=== PATIENT | male | born 1940 | race Two or more races ===

== ENCOUNTER → 2017-02-12 | Outpatient (CLI) | payer MEDICARE, MEDICAID ==
[~2017-02-12] MED LIST: CLOP75TA41 PO; DUTA0.5C11 PO; NITR100C PO; PRO125RS PO; PROAIR
== END | disposition home or self-care (01) ==
LOC: RT 08:53
PROVIDERS: ATTEND Internal Medicine Pulmonary Disease
DX: J44.9 Chronic obstructive pulmonary disease, unspecified (principal); R06.00 Dyspnea, unspecified
CPT/HCPCS: 94010; 94640

== ENCOUNTER → 2017-04-21 | Outpatient (CLI) | payer MEDICARE, MEDICAID ==
[2017-04-21 07:26] LABS: Urine RBC None Seen /hpf (0 - 3)
[2017-04-21 07:40] LABS: Basophils # (auto) 0.1 uL; Basophils % (auto) 1.1 % (0.0-2.0); Eosinophils # (auto) 0.3 uL; Eosinophils % (auto) 4.3 % (0.0-7.0); Hematocrit 44.2 % (41.0-53.0); Hemoglobin 14.6 g/dL (13.5-17.5); Lymphocytes # (auto) 1.4 uL; Lymphocytes % (auto) 23.5 % (10.0-50.0); Mean Corpuscular Hemoglobin 30.3 pg (28.0-32.0); Mean Corpuscular Hgb Conc. 33.1 g/dL (32.0-36.0); Mean Corpuscular Volume 91.5 fL (80.0-100.0); Mean Platelet Volume 7.4 fL (6.9-10.8); Monocytes # (auto) 0.8 uL; Monocytes % (auto) 13.4 % (0.0-12.0); Neutrophils # (auto) 3.4 uL; Neutrophils % (auto) 57.7 % (37.0-80.0); Nucleated Red Blood Cells % 0.1 %; Platelet Count (auto) 286 10^3/uL (140-450); Red Cell Distribution Width 13.3 % (11.8-14.3)
[2017-04-21 08:00] LABS: Urine Bilirubin Negative (Negative); Urine Blood Negative /uL (Negative); Urine Color Yellow (Yellow); Urine Glucose Normal (Normal); Urine Ketone Negative (Negative); Urine Mucus FEW (None Seen); Urine Nitrite Negative (Negative); Urine Squamous Epithelial Cell FEW /hpf (<5); Urine Urobilinogen Normal (Negative)
[2017-04-21 08:01] LABS: BUN/Creatinine Ratio 15.9; Bilirubin, Total 0.8 mg/dL (0.2-1.0); Calcium 9.2 mg/dL (8.5-10.1); Potassium 4.5 mmol/L (3.5-5.1); Total Protein 7.6 g/dL (6.4-8.2)
== END | disposition home or self-care (01) ==
LOC: LAB 06:39
PROVIDERS: ATTEND Family Medicine
DX: E78.4 Other hyperlipidemia (principal); J44.9 Chronic obstructive pulmonary disease, unspecified; I10 Essential (primary) hypertension; I63.9 Cerebral infarction, unspecified; E11.9 Type 2 diabetes mellitus without complications; Z79.899 Other long term (current) drug therapy
CPT/HCPCS: 36415; 80053; 80061; 81001; 82306; 83036; 84443; 85025

== ENCOUNTER → 2017-05-07 | Outpatient (CLI) | payer MEDICARE, MEDICAID ==
[2017-05-07 08:23] LABS: Amylase 92 U/L (25-115); Cholesterol 240 mg/dL (< 200); HDL Cholesterol 65 mg/dL (40-59); LDL Cholesterol 145 mg/dL (< 100); Triglycerides 266 mg/dL (< 150)
== END | disposition home or self-care (01) ==
LOC: LAB 06:45
PROVIDERS: ATTEND Nurse Practitioner
DX: E78.00 Pure hypercholesterolemia, unspecified (principal)
CPT/HCPCS: 36415; 80061; 82150; 83690

== ENCOUNTER → 2017-05-31 | Outpatient (CLI) | payer MEDICARE, MEDICAID | END | disposition home or self-care (01) | LOC: LAB 10:50 | PROVIDERS: ATTEND Internal Medicine Gastroenterology | DX: I10 Essential (primary) hypertension (principal); R10.84 Generalized abdominal pain | CPT/HCPCS: 36415; 82565; 84520 ==

== ENCOUNTER 2017-08-18 07:30 | Day surgery (SDC) | payer MEDICARE, MEDICAID ==
[2017-08-16 12:37] LABS: Urine Bacteria FEW /hpf (None Seen); Urine Blood Negative /uL (Negative); Urine Mucus FEW (None Seen); Urine WBC 1 /hpf (0 - 3)
[2017-08-16 12:43] LABS: Basophils # (auto) 0.1 uL; Basophils % (auto) 1.1 % (0.0-2.0); Eosinophils # (auto) 0.2 uL; Eosinophils % (auto) 3.1 % (0.0-7.0); Hematocrit 45.7 % (41.0-53.0); Hemoglobin 14.8 g/dL (13.5-17.5); Lymphocytes # (auto) 1.4 uL; Lymphocytes % (auto) 21.6 % (10.0-50.0); Mean Corpuscular Hemoglobin 29.7 pg (28.0-32.0); Mean Corpuscular Hgb Conc. 32.3 g/dL (32.0-36.0); Mean Corpuscular Volume 91.9 fL (80.0-100.0); Monocytes # (auto) 0.7 uL; Monocytes % (auto) 10.3 % (0.0-12.0); Neutrophils % (auto) 63.9 % (37.0-80.0); Platelet Count (auto) 285 10^3/uL (140-450); Red Blood Cells 4.97 10^6/uL (4.5-5.90); Red Cell Distribution Width 14.3 % (11.8-14.3); White Blood Cell 6.3 10^3/uL (4.4-10.8)
[2017-08-16 12:58] LABS: Calcium 9.6 mg/dL (8.5-10.1); Potassium 4.2 mmol/L (3.5-5.1)
[2017-08-16 13:00] LABS: Partial Thromboplastin Time 27.4 sec (22.64-33.71); Prothrombin Time 10.9 sec (9.37-12.3)
[2017-08-16 13:02] LABS: Albumin 4.2 g/dL (3.4-5.0); BUN/Creatinine Ratio 23.7
[2017-08-16 13:17] LABS: Bilirubin, Total 0.7 mg/dL (0.2-1.0); Total Protein 7.8 g/dL (6.4-8.2)
[~2017-08-18] VITALS: Ht 162.6 cm; Wt 68.0 kg
[~2017-08-18 07:30] MED LIST changes: +ALLO100T PO; +ASPI81TA27 PO; +ATOR20TA50 PO; +CHOL4POW4 PO; -CLOP75TA41 PO; -DUTA0.5C11 PO; +MELO1TAB56 PO; -NITR100C PO; -PRO125RS PO; -PROAIR; +PROAIR IN; +VALS1TAB57 PO
[2017-08-18] MEDS ORDERED: ceFAZolin 1GM/50ML 50 ML IV ONE (08:10)
[2017-08-18] MEDS ORDERED: SUCCINYLCHOLINE CHLORIDE 20 MG/ML 10ML VIAL IV ONE (09:22)
[2017-08-18] MEDS ORDERED: LIDOCAINE 1% HCL (LOCAL ANESTH.) INJ 20ML MDV ONE (09:22)
[2017-08-18] MEDS ORDERED: ROCURONIUM 10MG/ML 10ML VIAL IV ONE (09:23)
[2017-08-18] MEDS ORDERED: PROPOFOL 10 MG/ML 20 ML IV ONE (09:23)
[2017-08-18] MEDS ORDERED: MIDAZOLAM HCL 1MG/1ML-2 ML VIAL ONE (09:25)
[2017-08-18] MEDS ORDERED: NALOXONE HCL 0.4 MG/ML VIAL IV PRN (10:15)
[2017-08-18] MEDS ORDERED: hydrALAZINE HCL 20 MG/ML VL IV PRN (10:15)
[2017-08-18] MEDS ORDERED: MORPHINE SULFATE 4 MG/ML SYR/VIAL IV PRN (10:15)
[2017-08-18] MEDS ORDERED: ONDANSETRON HCL 4 MG/2 ML VIAL IV ONE (10:15)
[2017-08-18] MEDS ORDERED: fentaNYL CITRATE 100 MCG/2 ML VL ONE (10:18)
[2017-08-18] MEDS ORDERED: BUPIVACAINE W/ EPINEPH 0.25% INJ 50ML MDV ONE (10:19)
[2017-08-18] MEDS ORDERED: STERILE WATER 10 ML ONE (10:23)
[2017-08-18] MEDS ORDERED: ePHEDrine SULFATE 50 MG/ML AMP ONE (10:23)
[2017-08-18] MEDS ORDERED: GLYCOPYRROLATE 0.2 MG/ML 1ML VIAL ONE ×2 (10:34→10:35)
[2017-08-18] MEDS ORDERED: NEOSTIGMINE 1 MG/ML INJ (10mg/10ML VIAL) ONE (10:34)
[2017-08-18 11:56] VITALS: BP 148/84
== END 2017-08-18 11:59 | disposition home or self-care (01) ==
LOC: SUR 07:30
PROVIDERS: ATTEND Surgery
DX: K42.9 Umbilical hernia without obstruction or gangrene (principal); Z68.25 Body mass index [BMI] 25.0-25.9, adult; J45.909 Unspecified asthma, uncomplicated; M19.90 Unspecified osteoarthritis, unspecified site; Z87.891 Personal history of nicotine dependence; D69.6 Thrombocytopenia, unspecified
CPT/HCPCS: 36415; 80053; 81001; 85025; 85610; 85730; J0330; J0690; J2001; J2250; J2704

== ENCOUNTER → 2017-10-15 | Outpatient (CLI) | payer MEDICARE, MEDICAID ==
[2017-10-15 08:09] LABS: Urine WBC None Seen /hpf (0 - 3)
[2017-10-15 08:28] LABS: Basophils # (auto) 0 uL; Basophils % (auto) 0.9 % (0.0-2.0); Eosinophils # (auto) 0.1 uL; Eosinophils % (auto) 2.4 % (0.0-7.0); Hematocrit 42.6 % (41.0-53.0); Hemoglobin 14.1 g/dL (13.5-17.5); Lymphocytes # (auto) 1.2 uL; Lymphocytes % (auto) 21.5 % (10.0-50.0); Mean Corpuscular Hemoglobin 30.2 pg (28.0-32.0); Mean Corpuscular Volume 91.5 fL (80.0-100.0); Monocytes # (auto) 0.8 uL; Neutrophils # (auto) 3.5 uL; Neutrophils % (auto) 61.2 % (37.0-80.0); Platelet Count (auto) 254 10^3/uL (140-450); Red Blood Cells 4.66 10^6/uL (4.5-5.90); Red Cell Distribution Width 14.2 % (11.8-14.3); White Blood Cell 5.6 10^3/uL (4.4-10.8)
[2017-10-15 09:16] LABS: Urine Bacteria FEW /hpf (None Seen); Urine Blood Negative /uL (Negative); Urine Specific Gravity 1.013 (1.001-1.035)
[2017-10-15 09:39] LABS: BUN/Creatinine Ratio 18.3; Bilirubin, Total 0.3 mg/dL (0.2-1.0); Calcium 9.1 mg/dL (8.5-10.1); Potassium 4.3 mmol/L (3.5-5.1); Total Protein 7.7 g/dL (6.4-8.2)
== END | disposition home or self-care (01) ==
LOC: LAB 07:51
PROVIDERS: ATTEND Nurse Practitioner
DX: I10 Essential (primary) hypertension (principal); E78.5 Hyperlipidemia, unspecified; R68.89 Other general symptoms and signs; E11.9 Type 2 diabetes mellitus without complications; E78.00 Pure hypercholesterolemia, unspecified; Z87.891 Personal history of nicotine dependence; Z79.899 Other long term (current) drug therapy
CPT/HCPCS: 36415; 80053; 80061; 81001; 83036; 85025

== ENCOUNTER → 2018-05-09 | Outpatient (CLI) | payer MEDICARE, MEDICAID ==
[2018-05-09 10:22] LABS: Basophils % (manual) 0 (0.0-2.0); Blast Cells 0; Eosinophils % (manual) 0 (0-7); Metamyelocytes % 0; Myelocytes % 0; Promyelocytes % 0; Reactive Lymphocytes 0
[2018-05-09 10:28] LABS: Basophils # (auto) 0 uL; Basophils % (auto) 0.8 % (0.0-2.0); Eosinophils # (auto) 0.2 uL; Eosinophils % (auto) 2.9 % (0.0-7.0); Hematocrit 41.5 % (41.0-53.0); Hemoglobin 13.7 g/dL (13.5-17.5); Lymphocytes # (auto) 1.4 uL; Lymphocytes % (auto) 22.6 % (10.0-50.0); Mean Corpuscular Hemoglobin 30.6 pg (28.0-32.0); Mean Corpuscular Volume 92.5 fL (80.0-100.0); Monocytes # (auto) 0.7 uL; Monocytes % (auto) 11.1 % (0.0-12.0); Neutrophils # (auto) 3.8 uL; Neutrophils % (auto) 62.6 % (37.0-80.0); Platelet Count (auto) 315 10^3/uL (140-450); Red Blood Cells 4.48 10^6/uL (4.5-5.90); Red Cell Distribution Width 13.3 % (11.8-14.3); White Blood Cell 6.1 10^3/uL (4.4-10.8)
[2018-05-09 10:33] LABS: Urine Bacteria NONE SEEN /hpf (None Seen); Urine Blood Negative /uL (Negative); Urine Specific Gravity 1.015 (1.001-1.035); Urine WBC 1 /hpf (0 - 3)
[2018-05-09 10:49] LABS: BUN/Creatinine Ratio 18.2; Calcium 9.2 mg/dL (8.5-10.1); Potassium 5.1 mmol/L (3.5-5.1)
[2018-05-09 10:52] LABS: Bilirubin, Total 0.6 mg/dL (0.2-1.0); INR 0.93 (0.9-1.15); Partial Thromboplastin Time 24.7 sec (23.78-33.04); Total Protein 7.7 g/dL (6.4-8.2)
[2018-05-09 11:11] LABS: Band Neutrophils % (manual) 2; Lymphocytes % (manual) 20 (10.0-50.0); Monocytes % (manual) 9 (0-12)
== END | disposition home or self-care (01) ==
LOC: LAB 07:52
PROVIDERS: ATTEND Anesthesiology Pain Medicine
DX: R79.1 Abnormal coagulation profile (principal); Z79.01 Long term (current) use of anticoagulants
CPT/HCPCS: 36415; 80053; 81001; 85025; 85610; 85730

== ENCOUNTER → 2018-06-08 | Outpatient (CLI) | payer MEDICARE, MEDICAID ==
[2018-06-08 14:20] LABS: Basophils # (auto) 0 uL; Basophils % (auto) 0.6 % (0.0-2.0); Eosinophils # (auto) 0.1 uL; Eosinophils % (auto) 1.8 % (0.0-7.0); Hemoglobin 13.3 g/dL (13.5-17.5); Lymphocytes # (auto) 1.2 uL; Lymphocytes % (auto) 16.4 % (10.0-50.0); Mean Corpuscular Hgb Conc. 33.3 g/dL (32.0-36.0); Mean Corpuscular Volume 93.3 fL (80.0-100.0); Monocytes # (auto) 0.7 uL; Monocytes % (auto) 10.1 % (0.0-12.0); Neutrophils # (auto) 5.2 uL; Neutrophils % (auto) 71.1 % (37.0-80.0); Nucleated Red Blood Cells % 0.1 %; Platelet Count (auto) 308 10^3/uL (140-450); Red Blood Cells 4.29 10^6/uL (4.5-5.90); Red Cell Distribution Width 12.9 % (11.8-14.3); Urine Bacteria NONE SEEN /hpf (None Seen); Urine Blood Negative /uL (Negative); Urine Mucus FEW (None Seen); Urine Specific Gravity 1.019 (1.001-1.035); Urine WBC 2 /hpf (0 - 3); White Blood Cell 7.4 10^3/uL (4.4-10.8)
[2018-06-08 14:35] LABS: INR 0.96 (0.9-1.15); Partial Thromboplastin Time 24.5 sec (23.78-33.04); Prothrombin Time 10.3 sec (9.27-12.13)
[2018-06-08 14:53] LABS: BUN/Creatinine Ratio 16.8; Calcium 9.2 mg/dL (8.5-10.1); Potassium 4.5 mmol/L (3.5-5.1)
== END | disposition home or self-care (01) ==
LOC: LAB 13:16
PROVIDERS: ATTEND Anesthesiology Pain Medicine
DX: R79.1 Abnormal coagulation profile (principal); Z79.01 Long term (current) use of anticoagulants
CPT/HCPCS: 36415; 80048; 81001; 85025; 85610; 85730

== ENCOUNTER → 2018-07-28 | Outpatient (CLI) | payer MEDICARE, MEDICAID ==
[2018-07-28 08:08] LABS: Urine Bacteria NONE SEEN /hpf (None Seen); Urine Blood Negative /uL (Negative); Urine Specific Gravity 1.018 (1.001-1.035); Urine Sperm PRESENT /hpf (None Seen); Urine WBC 5 /hpf (0 - 3)
[2018-07-28 08:12] LABS: Basophils # (auto) 0.1 uL; Eosinophils # (auto) 0.2 uL; Eosinophils % (auto) 3.4 % (0.0-7.0); Hematocrit 41.7 % (41.0-53.0); Hemoglobin 13.9 g/dL (13.5-17.5); Lymphocytes # (auto) 1.3 uL; Lymphocytes % (auto) 21.4 % (10.0-50.0); Mean Corpuscular Hemoglobin 30.2 pg (28.0-32.0); Mean Corpuscular Hgb Conc. 33.3 g/dL (32.0-36.0); Mean Corpuscular Volume 90.7 fL (80.0-100.0); Monocytes # (auto) 0.8 uL; Monocytes % (auto) 12.1 % (0.0-12.0); Neutrophils # (auto) 3.8 uL; Neutrophils % (auto) 62.1 % (37.0-80.0); Platelet Count (auto) 323 10^3/uL (140-450); Red Cell Distribution Width 12.9 % (11.8-14.3); White Blood Cell 6.2 10^3/uL (4.4-10.8)
[2018-07-28 08:19] LABS: Alanine Aminotransferase 21 U/L (16-61); Albumin 3.8 g/dL (3.4-5.0); Anion Gap 5 (5-15); Aspartate Aminotransferase 16 U/L (15-37); BUN/Creatinine Ratio 21.1; Blood Urea Nitrogen 23 mg/dL (7-18); Calcium 9.2 mg/dL (8.5-10.1); Carbon Dioxide 29 mmol/L (21-32); Chloride 105 mmol/L (98-107); GFR African American > 60 mL/min; GFR Non-African American > 60 mL/min; Glucose 94 mg/dL (74-106); Potassium 4.2 mmol/L (3.5-5.1); Sodium 139 mmol/L (136-145); Uric Acid 6.4 mg/dL (3.5-7.2)
[2018-07-28 08:25] LABS: Alkaline Phosphatase 98 U/L (45-117); Bilirubin, Total 0.5 mg/dL (0.2-1.0); Cholesterol 187 mg/dL (< 200); HDL Cholesterol 68 mg/dL (40-59); LDL Cholesterol 110 mg/dL (< 100); Total Protein 7.3 g/dL (6.4-8.2); Triglycerides 107 mg/dL (< 150)
== END | disposition home or self-care (01) ==
LOC: LAB 07:19
PROVIDERS: ATTEND Nurse Practitioner
DX: E78.5 Hyperlipidemia, unspecified (principal); I10 Essential (primary) hypertension; E11.9 Type 2 diabetes mellitus without complications; J44.9 Chronic obstructive pulmonary disease, unspecified; M10.9 Gout, unspecified; Z87.891 Personal history of nicotine dependence; R35.1 Nocturia
CPT/HCPCS: 36415; 80053; 80061; 81001; 83036; 84153; 84443; 84550; 85025

== ENCOUNTER 2018-10-07 08:21 | Day surgery (SDC) | payer MEDICARE, MEDICAID ==
[2018-10-04 09:49] LABS: Basophils # (auto) 0 uL; Basophils % (auto) 0.7 % (0.0-2.0); Eosinophils # (auto) 0.1 uL; Hematocrit 40.2 % (41.0-53.0); Hemoglobin 13.2 g/dL (13.5-17.5); Lymphocytes % (auto) 16.4 % (10.0-50.0); Mean Corpuscular Hemoglobin 29.3 pg (28.0-32.0); Mean Corpuscular Hgb Conc. 32.9 g/dL (32.0-36.0); Mean Corpuscular Volume 89.1 fL (80.0-100.0); Monocytes # (auto) 0.7 uL; Monocytes % (auto) 12.5 % (0.0-12.0); Neutrophils # (auto) 4.1 uL; Neutrophils % (auto) 68.4 % (37.0-80.0); Platelet Count (auto) 309 10^3/uL (140-450); Red Blood Cells 4.51 10^6/uL (4.5-5.90)
[2018-10-04 10:01] LABS: INR 0.94 (0.9-1.15); Partial Thromboplastin Time 25.7 sec (23.78-33.04); Prothrombin Time 10.1 sec (9.27-12.13)
[~2018-10-07] VITALS: Ht 162.6 cm; Wt 68.0 kg
[~2018-10-07 08:21] MED LIST changes: -ALLO100T PO; -MELO1TAB56 PO
[2018-10-07] MEDS ORDERED: LIDOCAINE VISCOUS 2% 15ML UD ONE (08:37)
[2018-10-07] MEDS ORDERED: SODIUM CHLORIDE LOCK 10 ML ONE (08:37)
[2018-10-07] MEDS ORDERED: diphenhdrAMINE HCL 50 MG/1 ML VL ONE (08:38)
[2018-10-07] MEDS: fentaNYL CITRATE 100 MCG/2 ML VL ONE ×3 (10:30→10:41)
[2018-10-07] MEDS: MIDAZOLAM HCL 5 MG/ML-1ML VIAL ONE ×3 (10:30→10:41)
[2018-10-07 11:25] VITALS: BP 116/72
== END 2018-10-07 11:25 | disposition home or self-care (01) ==
LOC: GI 08:21
PROVIDERS: ATTEND Internal Medicine Gastroenterology
DX: Z12.11 Encounter for screening for malignant neoplasm of colon (principal); D12.3 Benign neoplasm of transverse colon; K57.30 Diverticulosis of large intestine without perforation or abscess without bleeding; K64.8 Other hemorrhoids; H40.89 Other specified glaucoma; J45.909 Unspecified asthma, uncomplicated; Z88.6 Allergy status to analgesic agent; Z88.8 Allergy status to other drugs, medicaments and biological substances; Z98.890 Other specified postprocedural states
CPT/HCPCS: 36415; 43450; 45380; 85025; 85610; 85730; 88305; A6257; J1200; J2250; J3010; 99152

== ENCOUNTER → 2019-01-27 | Outpatient (CLI) | payer MEDICARE, MEDICAID ==
[~2019-01-27] MED LIST changes: +ASPI-404 PO; -ASPI81TA27 PO
[2019-01-27 09:24] LABS: Basophils # (auto) 0 uL; Basophils % (auto) 0.7 % (0.0-2.0); Eosinophils # (auto) 0.2 uL; Hematocrit 40.8 % (41.0-53.0); Hemoglobin 13.5 g/dL (13.5-17.5); Lymphocytes # (auto) 1.4 uL; Lymphocytes % (auto) 22.5 % (10.0-50.0); Mean Corpuscular Hemoglobin 28.7 pg (28.0-32.0); Mean Corpuscular Hgb Conc. 33.1 g/dL (32.0-36.0); Mean Corpuscular Volume 86.6 fL (80.0-100.0); Monocytes # (auto) 0.7 uL; Monocytes % (auto) 11.1 % (0.0-12.0); Neutrophils # (auto) 3.8 uL; Neutrophils % (auto) 62.7 % (37.0-80.0); Platelet Count (auto) 293 10^3/uL (140-450); Red Blood Cells 4.71 10^6/uL (4.5-5.90); Red Cell Distribution Width 15.4 % (11.8-14.3); White Blood Cell 6.1 10^3/uL (4.4-10.8)
[2019-01-27 09:37] LABS: Albumin 3.8 g/dL (3.4-5.0); BUN/Creatinine Ratio 18.2; Calcium 9.3 mg/dL (8.5-10.1); Potassium 4.3 mmol/L (3.5-5.1)
[2019-01-27 09:42] LABS: Bilirubin, Total 0.5 mg/dL (0.2-1.0); Total Protein 7.4 g/dL (6.4-8.2)
[2019-01-27 09:52] LABS: Urine Bacteria NONE SEEN /hpf (None Seen); Urine Blood Negative /uL (Negative); Urine Specific Gravity 1.018 (1.001-1.035); Urine WBC 1 /hpf (0 - 3)
== END | disposition home or self-care (01) ==
LOC: LAB 08:55
PROVIDERS: ATTEND Nurse Practitioner
DX: E78.5 Hyperlipidemia, unspecified (principal)
CPT/HCPCS: 36415; 80053; 80061; 81001; 84443; 85025

== ENCOUNTER → 2019-08-14 | Outpatient (CLI) | payer MEDICARE ==
[2019-08-14 08:24] LABS: Basophils # (auto) 0.1 uL; Basophils % (auto) 0.9 % (0.0-2.0); Eosinophils # (auto) 0.4 uL; Hematocrit 34.6 % (41.0-53.0); Hemoglobin 11.2 g/dL (13.5-17.5); Lymphocytes # (auto) 1.3 uL; Lymphocytes % (auto) 17.8 % (10.0-50.0); Mean Corpuscular Hemoglobin 26.8 pg (28.0-32.0); Mean Corpuscular Hgb Conc. 32.3 g/dL (32.0-36.0); Monocytes # (auto) 0.8 uL; Monocytes % (auto) 10.7 % (0.0-12.0); Neutrophils # (auto) 4.8 uL; Neutrophils % (auto) 65.6 % (37.0-80.0); Nucleated Red Blood Cells % 0.1 %; Platelet Count (auto) 344 10^3/uL (140-450); Red Blood Cells 4.16 10^6/uL (4.5-5.90); Red Cell Distribution Width 15.2 % (11.8-14.3); White Blood Cell 7.3 10^3/uL (4.4-10.8)
[2019-08-14 08:33] LABS: Urine Bacteria NONE SEEN /hpf (None Seen); Urine Blood Negative /uL (Negative); Urine Specific Gravity 1.011 (1.001-1.035); Urine Sperm PRESENT /hpf (None Seen); Urine WBC <1 /hpf (0 - 3)
[2019-08-14 08:47] LABS: Potassium 4.3 mmol/L (3.5-5.1)
[2019-08-14 08:56] LABS: Albumin 3.8 g/dL (3.4-5.0); BUN/Creatinine Ratio 17.1; Bilirubin, Total 0.3 mg/dL (0.2-1.0); Calcium 9.2 mg/dL (8.5-10.1); Total Protein 7.5 g/dL (6.4-8.2)
== END | disposition home or self-care (01) ==
LOC: LAB 07:32
PROVIDERS: ATTEND Nurse Practitioner
DX: E78.5 Hyperlipidemia, unspecified (principal)
CPT/HCPCS: 36415; 80053; 80061; 81001; 82270; 84443; 85025

== ENCOUNTER → 2020-02-05 | Outpatient (CLI) | payer MEDICARE ==
[~2020-02-05] MED LIST changes: -ASPI-404 PO; +ASPI-543 PO
[2020-02-05 07:40] LABS: Basophils # (auto) 0.1 10 ^3/uL (0-0.2); Hemoglobin 9.4 g/dL (13.5-17.5); Lymphocytes # (auto) 1.7 10 ^3/uL (0.4-5.4)
[2020-02-05 07:41] LABS: Basophils % (auto) 1.2 % (0.0-2.0); Eosinophils # (auto) 0.3 10 ^3/uL (0-0.8); Eosinophils % (auto) 3.9 % (0.0-7.0); Hematocrit 30.9 % (41.0-53.0); Lymphocytes % (auto) 24.4 % (10.0-50.0); Mean Corpuscular Hgb Conc. 30.4 g/dL (32.0-36.0); Mean Corpuscular Volume 75.6 fL (80.0-100.0); Monocytes % (auto) 14.3 % (0.0-12.0); Neutrophils # (auto) 3.9 10 ^3/uL (1.6-8.6); Neutrophils % (auto) 56.2 % (37.0-80.0); Nucleated Red Blood Cells % 0.1 %; Platelet Count (auto) 426 10^3/uL (140-450); Red Blood Cells 4.09 10^6/uL (4.5-5.90); Red Cell Distribution Width 16.6 % (11.8-14.3); White Blood Cell 6.9 10^3/uL (4.4-10.8)
[2020-02-05 08:20] LABS: % Iron Saturation 3.3 % (20-55)
[2020-02-05 08:39] LABS: Albumin 3.7 g/dL (3.4-5.0); BUN/Creatinine Ratio 21.4; Calcium 9.6 mg/dL (8.5-10.1); Potassium 4.3 mmol/L (3.5-5.1)
[2020-02-05 08:43] LABS: Bilirubin, Total 0.2 mg/dL (0.2-1.0); Total Protein 7.3 g/dL (6.4-8.2)
== END | disposition home or self-care (01) ==
LOC: LAB 07:21
PROVIDERS: ATTEND Nurse Practitioner
DX: D64.9 Anemia, unspecified (principal)
CPT/HCPCS: 36415; 80053; 83540; 83550; 85025

== ENCOUNTER → 2020-02-12 | Outpatient (CLI) | payer MEDICARE | END | disposition home or self-care (01) | LOC: LAB 14:07 | PROVIDERS: ATTEND Nurse Practitioner | DX: D64.9 Anemia, unspecified (principal) | CPT/HCPCS: 82270 ==

== ENCOUNTER → 2020-04-10 | Day surgery (SDC) | payer MEDICARE, MEDICAID ==
[2020-04-04 10:41] LABS: Basophils # (auto) 0 10 ^3/uL (0-0.2); Basophils % (auto) 0.1 % (0.0-2.0); Eosinophils # (auto) 0 10 ^3/uL (0-0.8); Hemoglobin 11.7 g/dL (13.5-17.5); Monocytes # (auto) 1.4 10 ^3/uL (0-1.3)
[2020-04-04 10:44] LABS: Hematocrit 36.9 % (41.0-53.0); Lymphocytes % (auto) 6.9 % (10.0-50.0); Mean Corpuscular Hemoglobin 24.8 pg (28.0-32.0); Mean Corpuscular Hgb Conc. 31.6 g/dL (32.0-36.0); Mean Corpuscular Volume 78.3 fL (80.0-100.0); Monocytes % (auto) 10.2 % (0.0-12.0); Neutrophils # (auto) 11.4 10 ^3/uL (1.6-8.6); Neutrophils % (auto) 82.8 % (37.0-80.0); Nucleated Red Blood Cells % 0.1 %; Platelet Count (auto) 353 10^3/uL (140-450); Red Blood Cells 4.71 10^6/uL (4.5-5.90); White Blood Cell 13.8 10^3/uL (4.4-10.8)
[2020-04-04 10:49] LABS: Red Cell Distribution Width 24.8 % (11.8-14.3)
[2020-04-04 10:53] LABS: INR 1.01 (0.9-1.15); Partial Thromboplastin Time 23.6 sec (23.0-31.2)
[~2020-04-10] VITALS: Ht 162.6 cm; Wt 68.0 kg
[~2020-04-10] MED LIST changes: +LIDOCAINE VISCOUS 2% 15ML UD ONE; +SODIUM CHLORIDE LOCK 10 ML ONE; +diphenhdrAMINE HCL 50 MG/1 ML VL ONE
[2020-04-10] MEDS: MIDAZOLAM HCL 5 MG/ML-1ML VIAL ONE ×3 (14:08→14:14)
[2020-04-10] MEDS: fentaNYL CITRATE 100 MCG/2 ML VL ONE ×3 (14:08→14:14)
[2020-04-10 15:00] VITALS: BP 125/68
== END | disposition home or self-care (01) ==
LOC: GI 13:12
PROVIDERS: ATTEND Internal Medicine Gastroenterology
DX: R13.10 Dysphagia, unspecified (principal); K29.50 Unspecified chronic gastritis without bleeding; K44.9 Diaphragmatic hernia without obstruction or gangrene; J45.909 Unspecified asthma, uncomplicated; H40.9 Unspecified glaucoma; I10 Essential (primary) hypertension; E78.00 Pure hypercholesterolemia, unspecified; Z20.828 Contact with and (suspected) exposure to other viral communicable diseases; Z98.890 Other specified postprocedural states
CPT/HCPCS: 36415; 43239; 85025; 85610; 85730; 88305; 88342; J2250; J3010; J7030; U0003; G0500

== ENCOUNTER → 2020-10-28 | Outpatient (CLI) | payer MEDICARE, MEDICAID ==
[~2020-10-28] MED LIST changes: -LIDOCAINE VISCOUS 2% 15ML UD ONE; -SODIUM CHLORIDE LOCK 10 ML ONE; -diphenhdrAMINE HCL 50 MG/1 ML VL ONE
[2020-10-28 08:23] LABS: Urine WBC None Seen /hpf (0 - 3)
[2020-10-28 08:27] LABS: Basophils # (auto) 0.1 10 ^3/uL (0-0.2); Basophils % (auto) 1.3 % (0.0-2.0); Eosinophils # (auto) 0.2 10 ^3/uL (0-0.8); Eosinophils % (auto) 3.4 % (0.0-7.0); Hematocrit 39.8 % (41.0-53.0); Hemoglobin 13.2 g/dL (13.5-17.5); Lymphocytes # (auto) 1.1 10 ^3/uL (0.4-5.4); Lymphocytes % (auto) 20.8 % (10.0-50.0); Mean Corpuscular Hemoglobin 30.8 pg (28.0-32.0); Mean Corpuscular Hgb Conc. 33.3 g/dL (32.0-36.0); Mean Corpuscular Volume 92.4 fL (80.0-100.0); Monocytes # (auto) 0.7 10 ^3/uL (0-1.3); Monocytes % (auto) 12.7 % (0.0-12.0); Neutrophils # (auto) 3.2 10 ^3/uL (1.6-8.6); Neutrophils % (auto) 61.8 % (37.0-80.0); Platelet Count (auto) 284 10^3/uL (140-450); Red Blood Cells 4.31 10^6/uL (4.5-5.90); Red Cell Distribution Width 13.2 % (11.8-14.3); White Blood Cell 5.2 10^3/uL (4.4-10.8)
[2020-10-28 08:30] LABS: Urine Bacteria NONE SEEN /hpf (None Seen); Urine Blood Negative /uL (Negative); Urine Specific Gravity 1.013 (1.001-1.035); Urine Sperm PRESENT /hpf (None Seen)
[2020-10-28 08:50] LABS: Albumin 3.8 g/dL (3.4-5.0); Potassium 4.6 mmol/L (3.5-5.1)
[2020-10-28 09:03] LABS: BUN/Creatinine Ratio 25.8; Bilirubin, Total 0.5 mg/dL (0.2-1.0); Calcium 9.4 mg/dL (8.5-10.1); Total Protein 7.3 g/dL (6.4-8.2)
== END | disposition home or self-care (01) ==
LOC: LAB 07:50
PROVIDERS: ATTEND Nurse Practitioner
DX: I10 Essential (primary) hypertension (principal); E78.5 Hyperlipidemia, unspecified
CPT/HCPCS: 36415; 80053; 80061; 81001; 85025

== ENCOUNTER → 2020-11-26 | Outpatient (CLI) | payer MEDICARE, MEDICAID | END | disposition home or self-care (01) | LOC: XY 09:09 | PROVIDERS: ATTEND Nurse Practitioner | DX: I65.23 Occlusion and stenosis of bilateral carotid arteries (principal); I70.8 Atherosclerosis of other arteries; R42 Dizziness and giddiness | CPT/HCPCS: 93886 ==

== ENCOUNTER → 2021-05-14 | Outpatient (CLI) | payer MEDICARE, MEDICAID ==
[2021-05-14 08:04] LABS: Basophils # (auto) 0.1 10 ^3/uL (0-0.2); Basophils % (auto) 1.1 % (0.0-2.0); Eosinophils # (auto) 0.4 10 ^3/uL (0-0.8); Eosinophils % (auto) 6.9 % (0.0-7.0); Hematocrit 39.6 % (41.0-53.0); Hemoglobin 12.9 g/dL (13.5-17.5); Lymphocytes # (auto) 1.5 10 ^3/uL (0.4-5.4); Lymphocytes % (auto) 25.6 % (10.0-50.0); Mean Corpuscular Hemoglobin 29.8 pg (28.0-32.0); Mean Corpuscular Hgb Conc. 32.5 g/dL (32.0-36.0); Mean Corpuscular Volume 91.5 fL (80.0-100.0); Monocytes % (auto) 16.9 % (0.0-12.0); Neutrophils # (auto) 2.9 10 ^3/uL (1.6-8.6); Neutrophils % (auto) 49.5 % (37.0-80.0); Red Blood Cells 4.33 10^6/uL (4.5-5.90); Red Cell Distribution Width 13.4 % (11.8-14.3); White Blood Cell 5.9 10^3/uL (4.4-10.8)
[2021-05-14 08:37] LABS: Albumin 3.5 g/dL (3.4-5.0); Calcium 8.9 mg/dL (8.5-10.1); Uric Acid 6.2 mg/dL (3.5-7.2)
[2021-05-14 08:42] LABS: Bilirubin, Total 0.4 mg/dL (0.2-1.0); Total Protein 6.9 g/dL (6.4-8.2)
== END | disposition home or self-care (01) ==
LOC: LAB 07:27
PROVIDERS: ATTEND Nurse Practitioner
DX: E78.5 Hyperlipidemia, unspecified (principal); M10.9 Gout, unspecified; D64.9 Anemia, unspecified
CPT/HCPCS: 36415; 80053; 80061; 84550; 85025

== ENCOUNTER → 2021-09-05 | Outpatient (CLI) | payer MEDICARE, MEDICAID ==
[2021-09-05 08:48] LABS: Urine Blood Negative /uL (Negative); Urine Specific Gravity 1.013 (1.001-1.035); Urine WBC 64 /hpf (0 - 3)
[2021-09-05 08:59] LABS: Urine Bacteria FEW /hpf (None Seen)
[2021-09-05 10:55] LABS: Potassium 4.3 mmol/L (3.5-5.1)
[2021-09-05 10:57] LABS: Basophils # (auto) 0.1 10 ^3/uL (0-0.2); Basophils % (auto) 0.8 % (0.0-2.0); Eosinophils # (auto) 0.3 10 ^3/uL (0-0.8); Eosinophils % (auto) 3.4 % (0.0-7.0); Hematocrit 39.5 % (41.0-53.0); Hemoglobin 12.9 g/dL (13.5-17.5); Lymphocytes # (auto) 1.5 10 ^3/uL (0.4-5.4); Mean Corpuscular Hemoglobin 29.6 pg (28.0-32.0); Mean Corpuscular Hgb Conc. 32.7 g/dL (32.0-36.0); Mean Corpuscular Volume 90.7 fL (80.0-100.0); Monocytes # (auto) 0.9 10 ^3/uL (0-1.3); Monocytes % (auto) 12.1 % (0.0-12.0); Neutrophils # (auto) 4.7 10 ^3/uL (1.6-8.6); Neutrophils % (auto) 63.7 % (37.0-80.0); Red Blood Cells 4.35 10^6/uL (4.5-5.90); Red Cell Distribution Width 13.7 % (11.8-14.3); White Blood Cell 7.4 10^3/uL (4.4-10.8)
[2021-09-05 11:07] LABS: Albumin 3.9 g/dL (3.4-5.0); Bilirubin, Total 0.4 mg/dL (0.2-1.0); Calcium 9.4 mg/dL (8.5-10.1); Total Protein 7.3 g/dL (6.4-8.2)
== END | disposition home or self-care (01) ==
LOC: LAB 07:47
PROVIDERS: ATTEND Nurse Practitioner
DX: E78.5 Hyperlipidemia, unspecified (principal); I10 Essential (primary) hypertension
CPT/HCPCS: 36415; 80053; 80061; 81001; 85025

== ENCOUNTER 2025-03-13 16:47 | Inpatient (IN) | payer MEDICARE, MEDICAID ==
[~2025-03-13] VITALS: Ht 162.6 cm; Wt 61.5 kg
[~2025-03-13 16:47] MED LIST changes: +CHOL4POW33 PO; -CHOL4POW4 PO
[2025-03-13] MEDS: PANTOPRAZOLE 40 MG TAB PO ONE (18:45)
[2025-03-13] MEDS: ONDANSETRON HCL 4 MG/2 ML VIAL IV ONE (18:45)
[2025-03-13] MEDS: MORPHINE SULFATE 4 MG/ML SYR/VIAL IV ONE (18:45)
[2025-03-13] MEDS: SODIUM CHLORIDE 0.9% 2,000 ML IV ONE (18:45)
--- NOTE | 2025-03-13 18:50 | ED.PDOC ---
GI ASSESSMENT HPI Comments 84-year-old male with a history of glaucoma, hypertension and Parkinson's brought in by daughter for evaluation of diffuse abdominal pain radiating to both flanks and constipation since yesterday, nausea, vomiting and inability to tolerate p.o. food or liquids today, associated with abdominal distention. Patient states he did have a very small bowel movement this afternoon, but still feels as though he needs to empty his bowels but can not. He denies any fever or dysuria. Chief Complaint: Abdominal Pain Time Seen by MD: 18:30 Primary Care Provider: BEV Reviewed Notes: Nurses Notes, Medications, Allergies Allergies: Coded Allergies: NO KNOWN ALLERGIES (Unverified , 10/04/18) Home Meds Reported Medications Aspirin (Aspir-Low) 81 Mg Tab, 81 MG PO DAILY for 30 Days, MG 08/16/17 Cholestyramine (Cholestyramine) 4 Gm Pow, 4 GM PO DAILY, POW 08/16/17 Valsartan (Valsartan) 80 Mg Tab, 80 MG PO DAILY, TAB 08/16/17 Atorvastatin Calcium (ATORVASTATIN CALCIUM) 20 Mg Tab, 1 TAB PO DAILY, #30 TAB 5 Refills 08/16/17 [Proair] No Conflict Check, 2 PUFF IN PRN 07/01/12 Information Source: Patient, Relative (Child) Mode of Arrival: Wheelchair Timing: Days Duration: Since onset Prehospital treatment: None Quality: Burning Vomitus: Watery Stool: Normal Severity: Moderate Recent: None Pain Location: Diffuse Modifying Factors: Food Associated sign and symptoms: Nausea, Vomiting, Constipation, Abdominal Pain Past Medical History PAST MEDICAL HISTORY: Asthma, COPD, CVA, Gout, High Lipids, HTN Past Medical History (Other): Parkinson's Family History Family History: Unknown Social History Smoker: Non-Smoker, Quit Greater Than 1 Year Alcohol: Denies ETOH Use Drugs: Denies Drug Use Lives In: Home Constitutional: denies: chills, diaphoresis, fatigue, fever, malaise, sweats, weakness, others EENTM: denies: blurred vision, double vision, ear bleeding, ear discharge, ear drainage, ear pain, ear ringing, eye pain, eye redness, hearing loss, mouth pain, mouth swelling, nasal discharge, nose bleeding, nose congestion, nose pain, photophobia, tearing, throat pain, throat swelling, voice changes, others Respiratory: denies: cough, hemoptysis, orthopnea, SOB at rest, shortness of breath, SOB with excertion, stridor, wheezing, others Cardiovascular: denies: chest pain, dizzy spells, diaphoresis, Dyspnea on exertion, edema, irregular heart beat, left arm pain, lightheadedness, palpitations, PND, syncope, others Gastrointestinal: reports: abdomen distended, abdominal pain, nausea, vomiting; denies: blood streaked bowels, constipated, diarrhea, dysphagia, difficulty swallowing, hematemesis, melena, poor appetite, poor fluid intake, rectal bleed ing, rectal pain, others Genitourinary: reports: dysuria; denies: burning, flank pain, frequency, hematuria, incontinence, penile discharge, penile sore, pain, testicle pain, testicle swelling, urgency, others Neurological: denies: dizziness, fainting, headache, left sided numbness, left sided weakness, numbness, paresthesia, pre-existing deficit, right sided numbness, right sided weakness, seizure, speech problems, tingling, tremors, weakness, others Musculoskeletal: denies: back pain, gout, joint pain, joint swelling, muscle pain, muscle stiffness, neck pain, others Integumetry: denies: bruises, change in color, change in hair/nails, dryness, laceration, lesions, lumps, rash, wounds, others Allergic/Immunocompromised: denies: Difficulty Healing, Frequent Infections, Hives, Itching, others Hematologic/Lymphatic: denies: anemia, blood clots, easy bleeding, easy bruising, swollen glands, others Endocrine: denies: excessive hunger, excessive sweating, excessive thirst, excessive urination, flushing, intolerance to cold, intolerance to heat, unexplained weight gain, unexplained weight loss, others Psychiatric: denies: anxiety, bipolar disorder, depression, hopeless, panic disorder, schizophrenia, sleepless, suicidal, others All Other Systems: Reviewed and Negative Physical Exam General Appearance: Mild Distress HEENT: Other (Vitals and face symmetric. Moist mucous membranes.) Neck: Full Range of Motion, Normal Inspection Respiratory: Decreased Breath Sounds, No Accessory Muscle Use, No Respiratory Distress Cardiovascular: No Edema, No JVD, Regular Rate/Rhythm Breast Exam: Deferred Gastrointestinal: Diffuse, Distended, Tenderness Genitalia: Deferred Pelvic: Deferred Rectal: Deferred Extremities: Normal inspection, Normal range of motion, Non-tender, No pedal edema Neurologic: Alert (Oriented x4), Normal Affect, Normal Mood, Other Cerebellar Function: NOT DONE Reflexes: NOT DONE Skin: Dry, Normal Color, Warm Lymphatic: NOT DONE Was a procedure done? Was a procedure done?: No GI differential Dx Differential Diagnosis: Bowel Obstruction, Constipation, Diverticular disease, Gastritis/PUD, Gastroenteritis, Inflammatory BD, Ischemic Bowel, Electrolyte Imbalance, Food Poisoning, Bacterial, Viral, Hypovolemia, Impaction X-Ray, Labs, Meds, VS Vital Signs Date Time Temp Pulse Resp B/P (MAP) Pulse Ox O2 Delivery O2 Flow Rate FiO2 03/13/25 16:48 98.8 100 18 110/57 97 98.8 Lab Test 03/13/25 18:58 03/13/25 18:55 Range/Units White Blood Count 11.1 H 4.4-10.8 10^3/uL Red Blood Count 4.90 4.5-5.90 10^6/uL Hemoglobin 14.3 13.5-17.5 g/dL Hematocrit 43.0 41.0-53.0 % Mean Corpuscular Volume 87.8 80.0-100.0 fL Mean Corpuscular Hemoglobin 29.1 28.0-32.0 pg Mean Corpuscular Hemoglobin Concent 33.1 32.0-36.0 g/dL Red Cell Distribution Width 14.1 11.8-14.3 % Platelet Count 438 140-450 10^3/uL Mean Platelet Volume 7.7 6.9-10.8 fL Neutrophils (%) (Auto) 86.0 H 37.0-80.0 % Lymphocytes (%) (Auto) 6.0 L 10.0-50.0 % Monocytes (%) (Auto) 7.4 0.0-12.0 % Eosinophils (%) (Auto) 0.4 0.0-7.0 % Basophils (%) (Auto) 0.2 0.0-2.0 % Neutrophils # (Auto) 9.5 H 1.6-8.6 10 ^3/uL Lymphocytes # (Auto) 0.7 0.4-5.4 10 ^3/uL Monocytes # (Auto) 0.8 0-1.3 10 ^3/uL Eosinophils # (Auto) 0 0-0.8 10 ^3/uL Basophils # (Auto) 0 0-0.2 10 ^3/uL Nucleated Red Blood Cells 0.0 % Sodium Level Pending Potassium Level Pending Chloride Level Pending Carbon Dioxide Level Pending Anion Gap Pending Blood Urea Nitrogen Pending Creatinine Pending Glomerular Filtration Rate Calc Pending BUN/Creatinine Ratio Pending Serum Glucose Pending Calcium Level Pending Total Bilirubin Pending Aspartate Amino Transferase (AST) Pending Alanine Aminotransferase (ALT) Pending Alkaline Phosphatase Pending Troponin I High Sensitivity Pending Total Protein Pending Albumin Pending Lipase Pending Lactic Acid Level Pending PROCEDURE(s): ABPL - CT AB PEL WO CON-NO ORAL OR IV REASON: diffuse abd pain, n/v, constip ORDER NUMBER(s): [id number], ACCESSION NUMBER(s): [id number] EXAM: CT CT AB PEL WO CON-NO ORAL OR IV INDICATION: diffuse abd pain, n/v, constip TECHNIQUE: Volumetric multidetector CT images of the abdomen and pelvis were obtained without contrast. All CT scans at this facility use dose modulation, iterative reconstruction, and/or weight based dosing when appropriate to reduce radiation dose to as low as reasonably achievable. COMPARISON: None FINDINGS: [LOWER CHEST]: The partially visualized lung bases are clear without a pleural effusion. The cardiac size is normal without pericardial effusion. [LIVER]: Normal hepatic size without suspicious focal lesion. [GALLBLADDER AND BILIARY TREE]: No cholelithiasis. [SPLEEN]: Unremarkable. [PANCREAS]: Unremarkable. [ADRENAL GLANDS]: Unremarkable [KIDNEYS]: No hydronephrosis. No nephroureterolithiasis. [BLADDER]: Circumferential bladder wall thickening, which may be seen in the s etting of acute versus chronic cystitis and correlate with urinalysis. [REPRODUCTIVE ORGANS]: Unremarkable. [BOWEL/MESENTERY]: Stomach is normal. Air-fluid distention of multiple small bowel loops measuring up to 3.1 cm. No discrete transition point. Correlate for ileus versus partial small bowel obstruction. Moderate to severe colonic diverticulosis. [ASCITES]: Absent [LYMPHADENOPATHY]: No pathologically enlarged lymph nodes by CT size criteria [VASCULATURE]: No aneurysmal dilatation. [ABDOMINAL WALL]: Unremarkable. [MUSCULOSKELETAL]: No acute fracture or aggressive focal osseous lesion. Multifocal degenerative change of the visualized spine. IMPRESSION: 1. Air-fluid distention of multiple small bowel loops measuring up to 3.1 cm. No discrete transition point. Correlate for ileus versus partial small bowel obstruction. 2. Moderate to severe colonic diverticulosis. X-Ray, Labs, Meds, VS Comment 84-year-old male with a history of hypertension, glaucoma, Parkinson's, COPD gout complaining of abdominal pain, distention, nausea, vomiting, inability to tolerate p.o. food or liquids, and constipation Vitals remarkable for BP 110/57 Exam remarkable for diffuse abdominal distention and tenderness Rhythm strip independently interpreted by me: Sinus rhythm, rate 100, no ectopy. CT abdomen and pelvis showed multiple air and fluid-filled distended small bowel loops concerning for ileus versus partial SBO Patient treated with the following in the ED: L 0.9 normal saline IV bolus, morphine 4 mg IV, Zofran 4 mg IV, Protonix 40 mg IV Orders were placed for NG tube insertion to low intermittent suction. Routine surgical consult was placed. On re-evaluation, pain has improved and vitals were stable. Plan is to admit the patient for bowel decompression and surgical evaluation Time of 1ST Reevaluation: 19:00 Reevaluation 1ST: Unchanged Patient Education/Counseling: Diagnosis, Treatment Family Education/Counseling: Diagnosis, Treatment SEPSIS Sepsis Screen Date sepsis recognized/suspect: Mar 13, 2025 Time Sepsis recognized/suspect: 1647 Recent Procedure: No On Antibiotic Therapy: No Respiratory Rate >20: No Heart Rate >90: Yes Temp<36 C (96.8 F) or >38.3 C: No SBP <90 or MAP <65 mmHG: No New Acute Mental Status Change: No Is the patient on CPAP, BIPAP,: No SEPSIS EXCLUSION NOTE: Sepsis Exclusion Note: Patient presents with SIRS criteria, but the SIRS response is attributed to [ pain, hypovolemia], not a suspected infection. Sepsis bundle is not initiated at this time, due to this reason. Further management will focus on the treatment of the above condition (s). Physician Orders Troponin-I Hs (03/14/25 00:00) Troponin-I Hs (03/14/25 03:00) Troponin-I Hs (03/14/25 06:00) Comprehensive Metabolic Panel (03/13/25 18:32) Lipase (03/13/25 18:32) Urinalysis (03/13/25 18:32) Ct Ab Pel Wo Con-No Oral Or Iv (03/13/25 18:32) Blood Culture (03/13/25 18:32) Lactic Acid W/ Reflex Order (03/13/25 18:32) Sodium Chloride 0.9% (03/13/25 18:45) Troponin-I Hs (03/13/25 19:32) Troponin-I Hs (03/13/25 21:32) Vital Signs Date Time Temp Pulse Resp B/P (MAP) Pulse Ox O2 Delivery O2 Flow Rate FiO2 03/13/25 16:48 98.8 100 18 110/57 97 98.8 Laboratory Tests Test 03/13/25 18:55 03/13/25 18:58 Lactic Acid Level Pending White Blood Count 11.1 10^3/uL (4.4-10.8) H Departure 1 Departure Time of Disposition: 20:16 Impression: Primary Impression: Small bowel obstruction Disposition: ADMITTED INPATIENT Admit to: Med Surg Condition: Guarded Critical Care Note Critical Care Time?: No Stability Stability form required: No Heart Score Heart Score: Heart Score Response (Comments) Value History N/A 0 EKG N/A 0 Age N/A 0 Risk Factors N/A 0 Troponin N/A 0 Total 0 I personally scribed for IVY WASHINGTON MD ([email or web address]) on 03/13/25 at 18:50. Electronically submitted by Nandini Be ([email or web address]). I personally scribed for IVY WASHINGTON MD ([email or web address]) on 03/13/25 at 19:12. Electronically submitted by Nandini Be [email or web address]). IVY WASHINGTON MD Mar 13, 2025 18:50
--- NOTE | 2025-03-13 19:09 | DVH ---
EXAM: CT CT AB PEL WO CON-NO ORAL OR IV INDICATION: diffuse abd pain, n/v, constip TECHNIQUE: Volumetric multidetector CT images of the abdomen and pelvis were obtained without contras t. All CT scans at this facility use dose modulation, iterative reconstruction, and/or weight based d osing when appropriate to reduce radiation dose to as low as reasonably achievable. COMPARISON: None FINDINGS: [LOWER CHEST]: The partially visualized lung bases are clear without a pleural effusion. The cardiac size is normal without pericardial effusion. [LIVER]: Normal hepatic size without suspicious focal lesion. [GALLBLADDER AND BILIARY TREE]: No cholelithiasis. [SPLEEN]: Unremarkable. [PANCREAS]: Unremarkable. [ADRENAL GLANDS]: Unremarkable [KIDNEYS]: No hydronephrosis. No nephroureterolithiasis. [BLADDER]: Circumferential bladder wall thickening, which may be seen in the setting of acute versus chronic cystitis and correlate with urinalysis. [REPRODUCTIVE ORGANS]: Unremarkable. [BOWEL/MESENTERY]: Stomach is normal. Air-fluid distention of multiple small bowel loops measuring up to 3.1 cm. No discrete transition point. Correlate for ileus versus partial small bowel obstruction. Moderate to severe colonic diverticulosis. [ASCITES]: Absent [LYMPHADENOPATHY]: No pathologically enlarged lymph nodes by CT size criteria [VASCULATURE]: No aneurysmal dilatation. [ABDOMINAL WALL]: Unremarkable. [MUSCULOSKELETAL]: No acute fracture or aggressive focal osseous lesion. Multifocal degenerative myers ge of the visualized spine. IMPRESSION: 1. Air-fluid distention of multiple small bowel loops measuring up to 3.1 cm. No discrete transition point. Correlate for ileus versus partial small bowel obstruction. 2. Moderate to severe colonic diverticulosis.
[2025-03-13 19:36] LABS: Hematocrit 43.0 % (41.0-53.0); Hemoglobin 14.3 g/dL (13.5-17.5); Mean Corpuscular Hemoglobin 29.1 pg (28.0-32.0); Mean Corpuscular Volume 87.8 fL (80.0-100.0); Nucleated Red Blood Cells % 0.0 %
[2025-03-13 20:01] LABS: Alanine Aminotransferase 17 U/L (7-40); Alkaline Phosphatase 73 U/L (46-116); Anion Gap 11 (5-15); BUN/Creatinine Ratio 18.0 (10.0-20.0); Bilirubin, Total 0.7 mg/dL (0.2-1.0); Calcium 10.3 mg/dL (8.7-10.4); Carbon Dioxide 26 mmol/L (20-31); Chloride 100 mmol/L (98-107); Lipase 25 U/L (12-53); Potassium 5.1 mmol/L (3.5-5.1); Sodium 137 mmol/L (136-145); Total Protein 7.6 g/dL (5.7-8.2)
[2025-03-13 20:02] LABS: Albumin 5.0 g/dL (3.2-4.8); Blood Urea Nitrogen 39 mg/dL (9-23); Glucose 110 mg/dL (74-106)
[2025-03-13] MEDS: SODIUM CHLORIDE 0.9% 1,000 ML IV ONE (22:15)
[2025-03-13] MEDS ORDERED: ONDANSETRON HCL 4 MG/2 ML VIAL IV PRN (22:15)
[2025-03-13] MEDS ORDERED: MORPHINE SULFATE INJ 2 MG/ml SYRG IV PRN (22:15)
--- NOTE | 2025-03-13 22:27 | DVHHP2 ---
History of Present Illness Reason for Visit: Abdominal pain History of Present Illness 84-year-old male presents for evaluation of abdominal pain. Patient endorses a three day history of decreased appetite with associated nausea vomiting and diffuse abdominal pain. He also reports intermittent constipation. Past Medical History COPD, CVA, gout, dyslipidemia, hypertension, Parkinson's Past Surgical History None Family History Noncontributory Smoke: No ALCOHOL: none Drugs: None Lives: with Family Review of Systems Review of Systems Review of systems are negative otherwise addressed in HPI. Allergies: Coded Allergies: NO KNOWN ALLERGIES (Unverified , 10/04/18) Medications Current Medications Medications Dose Ordered Sig/Antonio Route Start Time Stop Time Status Last Admin Dose Admin Pantoprazole Sodium 40 mg DAILY IV 03/14/25 10:00 UNV Ondansetron HCl 4 mg Q4HP PRN IV 03/13/25 22:15 UNV Morphine Sulfate 2 mg Q4HPRN PRN IV 03/13/25 22:15 UNV Exam Vital Signs Vital Signs Date Time Temp Pulse Resp B/P (MAP) Pulse Ox O2 Delivery O2 Flow Rate FiO2 03/13/25 16:48 98.8 100 18 110/57 97 98.8 Exam Gen: 84-year-old male in mild distress Skin: Warm, dry, normal color and texture, no rash. HEENT: Normocephalic atraumatic, mucous membranes moist and pink. Neck: Cervical and supraclavicular nodes normal without enlargement, trachea is midline, thyroid gland is normal without masses. Pulmonary: Clear to auscultation and percussion bilaterally. Cardiac: Regular rate and rhythm. No murmur Abdomen: Soft, diffuse tenderness, mild distention, bowel sounds present all 4 quadrants, no guarding, no rigidity, no organomegaly. Extremities: No cyanosis, clubbing, no edema Neuro: Cranial nerves II through XII grossly intact, normal affect and speech, no focal motor deficits. Labs/Xrays ORDERING PHYSICIAN: IVY WASHINGTON MD PROCEDURE(s): ABPL - CT AB PEL WO CON-NO ORAL OR IV REASON: diffuse abd pain, n/v, constip ORDER NUMBER(s): [id number], ACCESSION NUMBER(s): [id number] EXAM: CT CT AB PEL WO CON-NO ORAL OR IV INDICATION: diffuse abd pain, n/v, constip TECHNIQUE: Volumetric multidetector CT images of the abdomen and pelvis were obtained without contrast. All CT scans at this facility use dose modulation, iterative reconstruction, and/or weight based dosing when appropriate to reduce radiation dose to as low as reasonably achievable. COMPARISON: None FINDINGS: [LOWER CHEST]: The partially visualized lung bases are clear without a pleural effusion. The cardiac size is normal without pericardial effusion. [LIVER]: Normal hepatic size without suspicious focal lesion. [GALLBLADDER AND BILIARY TREE]: No cholelithiasis. [SPLEEN]: Unremarkable. [PANCREAS]: Unremarkable. [ADRENAL GLANDS]: Unremarkable [KIDNEYS]: No hydronephrosis. No nephroureterolithiasis. [BLADDER]: Circumferential bladder wall thickening, which may be seen in the setting of acute versus chronic cystitis and correlate with urinalysis. [REPRODUCTIVE ORGANS]: Unremarkable. [BOWEL/MESENTERY]: Stomach is normal. Air-fluid distention of multiple small bowel loops measuring up to 3.1 cm. No discrete transition point. Correlate for ileus versus partial small bowel obstruction. Moderate to severe colonic diverticulosis. [ASCITES]: Absent [LYMPHADENOPATHY]: No pathologically enlarged lymph nodes by CT size criteria [VASCULATURE]: No aneurysmal dilatation. [ABDOMINAL WALL]: Unremarkable. [MUSCULOSKELETAL]: No acute fracture or aggressive focal osseous lesion. Multifocal degenerative change of the visualized spine. IMPRESSION: 1. Air-fluid distention of multiple small bowel loops measuring up to 3.1 cm. No discrete transition point. Correlate for ileus versus partial small bowel obstruction. 2. Moderate to severe colonic diverticulosis. ATED BY: NICOL GRIFFIN MD Labs Test 03/13/25 19:44 03/13/25 18:58 03/13/25 18:55 Range/Units Troponin I High Sensitivity 9 </=54 ng/L White Blood Count 11.1 H 4.4-10.8 10^3/uL Red Blood Count 4.90 4.5-5.90 10^6/uL Hemoglobin 14.3 13.5-17.5 g/dL Hematocrit 43.0 41.0-53.0 % Mean Corpuscular Volume 87.8 80.0-100.0 fL Mean Corpuscular Hemoglobin 29.1 28.0-32.0 pg Mean Corpuscular Hemoglobin Concent 33.1 32.0-36.0 g/dL Red Cell Distribution Width 14.1 11.8-14.3 % Platelet Count 438 140-450 10^3/uL Mean Platelet Volume 7.7 6.9-10.8 fL Neutrophils (%) (Auto) 86.0 H 37.0-80.0 % Lymphocytes (%) (Auto) 6.0 L 10.0-50.0 % Monocytes (%) (Auto) 7.4 0.0-12.0 % Eosinophils (%) (Auto) 0.4 0.0-7.0 % Basophils (%) (Auto) 0.2 0.0-2.0 % Neutrophils # (Auto) 9.5 H 1.6-8.6 10 ^3/uL Lymphocytes # (Auto) 0.7 0.4-5.4 10 ^3/uL Monocytes # (Auto) 0.8 0-1.3 10 ^3/uL Eosinophils # (Auto) 0 0-0.8 10 ^3/uL Basophils # (Auto) 0 0-0.2 10 ^3/uL Nucleated Red Blood Cells 0.0 % Sodium Level 137 136-145 mmol/L Potassium Level 5.1 3.5-5.1 mmol/L Chloride Level 100 98-107 mmol/L Carbon Dioxide Level 26 20-31 mmol/L Anion Gap 11 5-15 Blood Urea Nitrogen 39 H 9-23 mg/dL Creatinine 2.17 H 0.700-1.30 mg/dL Glomerular Filtration Rate Calc 29 >90 mL/min BUN/Creatinine Ratio 18.0 10.0-20.0 Serum Glucose 110 H 74-106 mg/dL Calcium Level 10.3 8.7-10.4 mg/dL Total Bilirubin 0.7 0.2-1.0 mg/dL Aspartate Amino Transferase (AST) 14 13-40 U/L Alanine Aminotransferase (ALT) 17 7-40 U/L Alkaline Phosphatase 73 46-116 U/L Total Protein 7.6 5.7-8.2 g/dL Albumin 5.0 H 3.2-4.8 g/dL Lipase 25 12-53 U/L Lactic Acid Level 1.9 0.4-2.0 mmol/L SEPSIS Sepsis Screen Date sepsis recognized/suspect: Mar 13, 2025 Time Sepsis recognized/suspect: 8 Recent Procedure: No On Antibiotic Therapy: No Respiratory Rate >20: No Heart Rate >90: Yes Temp<36 C (96.8 F) or >38.3 C: No SBP <90 or MAP <65 mmHG: No New Acute Mental Status Change: No Is the patient on CPAP, BIPAP,: No Physician Orders Troponin-I Hs (03/14/25 00:00) Troponin-I Hs (03/14/25 03:00) Troponin-I Hs (03/14/25 06:00) Urinalysis (03/13/25 18:32) Ct Ab Pel Wo Con-No Oral Or Iv (03/13/25 18:32) Blood Culture (03/13/25 18:32) Ng To Lis (03/13/25 20:14) * Surgical Consult (03/13/25 ) Pantoprazole (Protonix) (03/14/25 10:00) Small Bowel Series-W Gastrogra (03/13/25 22:10) Sodium Chloride 0.9% (03/13/25 22:15) Basic Metabolic Panel (03/14/25 04:00) Complete Blood Count (03/14/25 04:00) Npo (Nothing By Mouth) Diet (03/14/25 Breakfast) Condition: Stable (03/13/25 22:10) Bedrest With Bathroom Privileg (03/13/25 22:10) Morphine Sulfate Injection (03/13/25 22:15) Admit (03/13/25 22:10) Ondansetron Hcl (Zofran) (03/13/25 22:15) Vital Signs Date Time Temp Pulse Resp B/P (MAP) Pulse Ox O2 Delivery O2 Flow Rate FiO2 03/13/25 16:48 98.8 100 18 110/57 97 98.8 Laboratory Tests Test 03/13/25 18:55 03/13/25 18:58 Lactic Acid Level 1.9 mmol/L (0.4-2.0) White Blood Count 11.1 10^3/uL (4.4-10.8) H Assessment/Plan Assessment/Plan Assessment Acute abdominal pain Rule out small-bowel obstruction Acute kidney injury Plan Admit the patient to [facility] to the hospitalist NPO Surgical consult Small-bowel follow-through pending Maintenance IV fluids Continue treatment per orders Plan discussed with: Patient My Orders Orders - YENNI HUITRON Procedure Category Date Status Time Pantoprazole PHA 03/14/25 Logged (Protonix) 10:00 Small Bowel Series-W XY 03/13/25 Logged Gastrogra 22:10 Sodium Chloride 0.9% PHA 03/13/25 Logged 22:15 Basic Metabolic Panel LAB 03/14/25 Verified 04:00 Complete Blood Count LAB 03/14/25 Verified 04:00 Npo (Nothing By DIET 03/14/25 Transmitted Mouth) Diet Breakfast Condition: Stable [facility] 03/13/25 In Process 22:10 Bedrest With Bathroom PAULINE 03/13/25 In Process Privileg 22:10 Morphine Sulfate PHA 03/13/25 Logged Injection 22:15 Admit ADMIT 03/13/25 Verified 22:10 Ondansetron Hcl PHA 03/13/25 Logged (Zofran) 22:15 Date of Service: Mar 13, 2025 Billing Provider: YENNI HUITRON Common Visit Codes: [id number] INP/OBS CARE (MOD) YENNI HUITRON Mar 13, 2025 22:27
[2025-03-14] VITALS (10 sets, daily range): BP systolic 105–153; BP diastolic 42–76; PULSE 77–100; RESP 16–21; TEMP 97.5–98.4; O2SAT 91–97
[2025-03-14 06:28] LABS: Hematocrit 33.5 % (41.0-53.0); Hemoglobin 11.5 g/dL (13.5-17.5); Mean Corpuscular Hemoglobin 30.1 pg (28.0-32.0); Mean Corpuscular Volume 87.4 fL (80.0-100.0); Nucleated Red Blood Cells % 0.0 %
[2025-03-14 06:42] LABS: Anion Gap 10 (5-15); Carbon Dioxide 24 mmol/L (20-31); Chloride 105 mmol/L (98-107); Potassium 4.6 mmol/L (3.5-5.1); Sodium 139 mmol/L (136-145)
[2025-03-14 06:43] LABS: Calcium 8.9 mg/dL (8.7-10.4)
[2025-03-14 06:48] LABS: BUN/Creatinine Ratio 16.1 (10.0-20.0); Blood Urea Nitrogen 40 mg/dL (9-23); Glucose 94 mg/dL (74-106)
[2025-03-14] MEDS ORDERED: GASTROGRAFIN 120 ML SOL ONE (09:07)
[2025-03-14] MEDS: PANTOPRAZOLE 40 MG/10 ML VIAL INJ IV SCH (09:31)
[2025-03-14] MEDS: SODIUM CHLORIDE 0.9% 1,000 ML IV SCH (10:15)
--- NOTE | 2025-03-14 11:02 | DVH ---
US KIDNEY HISTORY: renal failure COMPARISON: None TECHNIQUE: Transverse and longitudinal grayscale and color doppler images were obtained of the kidney s and bladder. FINDINGS: Right kidney: Size: 9.3 cm Cortical thickness: Normal Echogenicity: Normal Stones: None Masses: None Hydronephrosis: None Ureters: Not well visualized. Other: None Left kidney: Size: 9.3 cm Cortical thickness: Normal Echogenicity: Normal Stones: None Masses: None Hydronephrosis: None Ureters: Not well visualized. Other: None Bladder: Normal Other: None. IMPRESSION: Unremarkable renal US.
--- NOTE | 2025-03-14 11:15 | DVHPN2 ---
Progress Note Date Seen: Mar 14, 2025 Medical Necessity Reason Pt with a Central, PICC or Fol: No Subjective Patient reports: No new complaints Review of Systems: HEENT:Normal, CVS:Normal, RESPIRATORY:Normal, GI:Normal, :Normal, MSK:Normal, NEURO:Normal Objective vital signs Vital Sign Date Time Temp Pulse Resp B/P (MAP) Pulse Ox O2 Delivery O2 Flow Rate FiO2 03/14/25 09:00 98.4 77 16 105/42 (63) 92 98.4 03/14/25 07:41 Room Air* 0 21 Total Intake and Output 03/13/25 03/13/25 03/14/25 15:00 23:00 07:00 Intake Total 0 ml Output Total 0 ml Balance 0 ml medications Current Medications Medications Dose Ordered Sig/Antonio Route Start Time Stop Time Status Last Admin Dose Admin Pantoprazole Sodium 40 mg DAILY IV 03/14/25 10:00 Ondansetron HCl 4 mg Q4HP PRN IV 03/13/25 22:15 Morphine Sulfate 2 mg Q4HPRN PRN IV 03/13/25 22:15 Sodium Chloride 1,000 ml @ 100 mls/hr Q10H IV 03/14/25 10:15 Examination: GENERAL:Normal, HEENT:Normal, NECK:Normal, LUNGS:Normal, CVS:Normal, ABDOMEN:Normal, ABDOMEN:Abnormal (distension, ng tube), MSK:Normal, SKIN:Normal, NEURO:Normal, :Normal laboratory and microbiology Laboratory Tests 03/14/25 05:26 Test 03/14/25 05:26 Range/Units Serum Glucose 94 74-106 mg/dL Problem List/Assessment/Plan Problem List/Assessment/Plan #1 sbo: ng tube, ivf, surg eval #2 htn #3 acute renal failure ?vasomotor nephropathy: ivf #4 hyperlipidemia advance care planning- full code- time spent 18 mins Plan discussed with: Patient My Orders My Orders Orders - YENNI CALDERON MD Procedure Category Date Status Time *Dr. [facility] CONS 03/14/25 Transmitted -[place] 10:08 Urinalysis LAB 03/14/25 Uncollected 10:14 Sodium Chloride 0.9% PHA 03/14/25 In Process 10:15 Kidney US 03/14/25 Resulted 10:14 Basic Metabolic Panel LAB 03/15/25 Verified 06:00 Complete Blood Count LAB 03/15/25 Verified 06:00 PTPTT LAB 03/15/25 Verified 04:00 Chest Portable XY 03/14/25 Taken 10:14 Date of Service: Mar 14, 2025 Billing Provider: YENNI CALDERON MD Common Visit Codes: [id number] INP/OBS CARE(HIGH) Secondary Visit Codes: [id number] CARE PLAN 30 MINUTES YENNI CALDERON MD Mar 14, 2025 11:15
--- NOTE | 2025-03-14 11:24 | DVH ---
INDICATION: copd TECHNIQUE: Frontal view of the chest. COMPARISON: None FINDINGS: Nasogastric tube tip in the stomach.. The heart and mediastinal contours are grossly unremarkable. T here is no evidence of pleural disease. The lungs are clear. The bony structures of the chest are intact without fracture. Contrast opacification of the stomach. IMPRESSION: 1. No evidence of acute disease.
[2025-03-14] MEDS ORDERED: AML5T PO (11:29)
[2025-03-14] MEDS ORDERED: HYDR50TA47 PO (11:34)
[2025-03-14] MEDS ORDERED: FENO145T27 PO (11:34)
[2025-03-14] MEDS ORDERED: LISI40TA16 PO (11:34)
[2025-03-14] MEDS ORDERED: CARB1TAB73 PO (11:38)
[2025-03-14] MEDS ORDERED: MELO15TA29 PO (11:38)
[2025-03-14] MEDS ORDERED: TIZA4TAB9 PO (11:38)
[2025-03-14] MEDS ORDERED: PANT1INJ3 PO (11:38)
[2025-03-14] MEDS ORDERED: TRAM50TA2 PO (11:38)
[2025-03-14] MEDS ORDERED: FOLITAB22 PO (11:39)
[2025-03-14] MEDS ORDERED: OXYB5TAB14 PO (11:39)
[2025-03-14] MEDS ORDERED: CYAN-17 PO (11:42)
[2025-03-14] MEDS ORDERED: FLUT1SPR5 (11:42)
[2025-03-14] MEDS ORDERED: ROSU20TA14 PO (11:42)
[2025-03-14] MEDS ORDERED: ALL100T PO (11:42)
[2025-03-14] MEDS ORDERED: ALBU1AER4 IN (11:42)
[2025-03-14] MEDS ORDERED: THIA100T26 PO (11:42)
[2025-03-14] MEDS ORDERED: DUTA0.5C11 PO (11:42)
--- NOTE | 2025-03-14 11:56 | DVH ---
Procedure: XY SMALL BOWEL SERIES-W GASTROGRA Reason for study/Clinical History: SBO Comparison Study: None Technique: Single contrast small bowel series performed. FINDINGS/IMPRESSION: Initial weblogic administrator view of the abdomen and pelvis appears demonstrates no acute process. Contrast is identified within the colon by 45 minutes. This represents a normal small bowel transit time.
--- NOTE | 2025-03-14 12:19 | DVHINCON2 ---
Date of service: Mar 14, [address] Villela Reason for Consultation Acute kidney injury History of Present Illness Patient is 84-year-old male with past medical history significant for Asthma, COPD, CVA, Gout, High Lipids, Parkinson and HTN is admitted for abdominal pain distention associated with nausea vomiting and constipation. On admission found to have elevated BUN and creatinine nephrology is consulted for acute kidney injury Past Medical History PAST MEDICAL HISTORY: Asthma, COPD, CVA, Gout, High Lipids, HTN, Parkinson's Past Surgical History Umbilical hernia A right groin hernia repair x2 Allergies: Coded Allergies: NO KNOWN ALLERGIES (Unverified , 10/04/18) Home Meds Reported Medications Dutasteride (Avodart) 0.5 Mg Cap, 0.5 MG PO DAILY, CAP 03/14/25 Albuterol Sulfate (Proair Respiclick) 108 Mcg/Act Aer, 108 MCG IN, AER 03/14/25 Fluticasone Propionate (Nasal) (Flonase Allergy Relief) 50 Mcg/Act Spr, 50 MCG NA, SPRAY 03/14/25 Rosuvastatin Calcium (Crestor) 20 Mg Tab, 1 TAB PO DAILY, #30 TAB 5 Refills 03/14/25 Thiamine Mononitrate (B1) 100 Mg Tab, 100 MG PO DAILY, TAB 03/14/25 Cyanocobalamin (B12) 1,000 Mcg Cap, 1000 MCG PO DAILY, CAP 03/14/25 Allopurinol (ZYLOPRIM TABLET) 100 Mg Tb, 1 TAB PO DAILY, #30 TAB 5 Refills 03/14/25 Oxybutynin Chloride (Oxybutynin Chloride) 5 Mg Tab, 10 MG PO DAILY, TAB 03/14/25 Folic Czgz-Qmolwoozkr-Jictgnzv (Folbic) Tab, 1 TAB PO DAILY, #90 TAB 1 Refill 03/14/25 Pantoprazole Sodium (PANTOPRAZOLE SODIUM) 40 Mg Inj, 40 MG PO DAILY, INJ 03/14/25 Carbidopa-Levodopa (Carbidopa/Levodopa Odt 25-250 mg) 1 Tab Tab, 1 TAB PO TID, TAB 03/14/25 Meloxicam (Meloxicam) 15 Mg Tab, 1 TAB PO DAILY, #30 TAB 2 Refills 03/14/25 Tizanidine Hydrochloride (Zanaflex) 4 Mg Tab, 2 MG PO Q12HR, TAB 03/14/25 Tramadol Hcl (Tramadol Hcl) 50 Mg Tab, 50 MG PO Q8HR, TAB 03/14/25 Fenofibrate (FENOFIBRATE) 145 Mg Tab, 160 MG PO DAILY, TAB 03/14/25 Hydralazine Hcl (Hydralazine Hcl) 50 Mg Tab, 1 TAB PO Q8HPRN, #90 TAB 5 Refills 03/14/25 Lisinopril (Lisinopril) 40 Mg Tab, 1 TAB PO DAILY, #30 TAB 5 Refills 03/14/25 Amlodipine Besylate (NORVASC TABLET) 5 Mg Tb, 2.5 MG PO DAILY, TAB 03/14/25 Discontinued Reported Medications [Proair] No Conflict Check, 2 PUFF IN PRN 07/01/12 Current Medications Current Medications Medications (Trade) Dose Ordered Sig/Antonio Route PRN Reason Start Time Stop Time Status Last Admin Pantoprazole Sodium (Protonix) 40 mg DAILY IV 03/14/25 10:00 Ondansetron HCl (Zofran) 4 mg Q4HP PRN IV NAUSEA / VOMITING 03/13/25 22:15 Morphine Sulfate 2 mg Q4HPRN PRN IV SEVERE PAIN (7-10 PAIN SCALE) 03/13/25 22:15 Sodium Chloride 1,000 ml @ 100 mls/hr Q10H IV 03/14/25 10:15 Family History: Diabetes mellitus G8 MOTHER Hypertension G8 FATHER Review of Systems All 12 item review of systems reviewed with the patient nonsignificant except what is mentioned in the history of present illness H&P Exam Vital Signs/I&O Vital Sign Date Time Temp Pulse Resp B/P (MAP) Pulse Ox O2 Delivery O2 Flow Rate FiO2 03/14/25 09:00 98.4 77 16 105/42 (63) 92 98.4 03/14/25 07:41 Room Air* 0 21 Intake and Output 03/13/25 03/14/25 19:00 07:00 Intake Total 0 ml Output Total 0 ml Balance 0 ml Intake Oral 0 ml Output Urine Total 0 ml Physical Exam Patient lying comfortably in bed, daughter at bedside Lungs clear to auscultation bilaterally Cardiac exam regular rate and rhythm GI soft bowel sounds are present, NG tube suction normal Extremities no clubbing cyanosis or edema Neuro patient is awake and alert Labs/Diagnostic Data Labs/Diagnostic Data Laboratory Tests Test 03/14/25 05:26 03/13/25 19:44 03/13/25 18:58 03/13/25 18:55 Range/Units White Blood Count 8.2 # 11.1 H 4.4-10.8 10^3/uL Red Blood Count 3.83 L 4.90 4.5-5.90 10^6/uL Hemoglobin 11.5 #L 14.3 13.5-17.5 g/dL Hematocrit 33.5 #L 43.0 41.0-53.0 % Mean Corpuscular Volume 87.4 87.8 80.0-100.0 fL Mean Corpuscular Hemoglobin 30.1 29.1 28.0-32.0 pg Mean Corpuscular Hemoglobin Concent 34.4 33.1 32.0-36.0 g/dL Red Cell Distribution Width 14.1 14.1 11.8-14.3 % Platelet Count 339 438 140-450 10^3/uL Mean Platelet Volume 7.6 7.7 6.9-10.8 fL Neutrophils (%) (Auto) 70.7 86.0 H 37.0-80.0 % Lymphocytes (%) (Auto) 13.1 6.0 L 10.0-50.0 % Monocytes (%) (Auto) 12.6 H 7.4 0.0-12.0 % Eosinophils (%) (Auto) 3.1 0.4 0.0-7.0 % Basophils (%) (Auto) 0.5 0.2 0.0-2.0 % Neutrophils # (Auto) 5.8 9.5 H 1.6-8.6 10 ^3/uL Lymphocytes # (Auto) 1.1 0.7 0.4-5.4 10 ^3/uL Monocytes # (Auto) 1.0 0.8 0-1.3 10 ^3/uL Eosinophils # (Auto) 0.3 0 0-0.8 10 ^3/uL Basophils # (Auto) 0 0 0-0.2 10 ^3/uL Nucleated Red Blood Cells 0.0 0.0 % Sodium Level 139 137 136-145 mmol/L Potassium Level 4.6 5.1 3.5-5.1 mmol/L Chloride Level 105 100 98-107 mmol/L Carbon Dioxide Level 24 26 20-31 mmol/L Anion Gap 10 11 5-15 Blood Urea Nitrogen 40 H 39 H 9-23 mg/dL Creatinine 2.49 H 2.17 H 0.700-1.30 mg/dL Glomerular Filtration Rate Calc 25 29 >90 mL/min BUN/Creatinine Ratio 16.1 18.0 10.0-20.0 Serum Glucose 94 110 H 74-106 mg/dL Calcium Level 8.9 10.3 8.7-10.4 mg/dL Troponin I High Sensitivity 13 9 7 </=54 ng/L Total Bilirubin 0.7 0.2-1.0 mg/dL Aspartate Amino Transferase (AST) 14 13-40 U/L Alanine Aminotransferase (ALT) 17 7-40 U/L Alkaline Phosphatase 73 46-116 U/L Total Protein 7.6 5.7-8.2 g/dL Albumin 5.0 H 3.2-4.8 g/dL Lipase 25 12-53 U/L Lactic Acid Level 1.9 0.4-2.0 mmol/L Assessment Acute kidney injury superimposed Chronic Kidney Disease secondary hemodynamic mediated Small-bowel obstruction Constipation Hypertension Dehydration Anemia of chronic of Kidney disease Recommendations Closely monitor fluid and electrolytes Avoid nephrotoxic medications Strict I&Os Check urine electrolytes and protein excretion Check kidney ultrasound I agree with IV fluid hydration KCL replacement Surgery consult We will continue to follow Patient seen and examined by myself. I discussed my plan of care with the patient, his daughter and the primary nurse at the bedside I would like to thank Dr. Villela for the consult, will follow Plan discussed with: Patient, Daughter RYAN JENSEN MD Mar 14, 2025 12:18
--- NOTE | 2025-03-14 13:21 | DVHINCON2 ---
Consultation - Surgical Date Seen: Mar 14, 2025 Referring Physician Reason for Consultation Partial small bowel obstruction History of Present Illness History of Present Illness Mr. Mayo is a 84-year-old male who presented yesterday to the ED due to increased abdominal distention, abdominal pain, nausea, vomiting. All the symptoms started past 11:00 a.m. yesterday after he was feeling constipated, and daughter gave him some MiraLax. After the MiraLax yesterday he was able to have a bowel movement and it was liquidy. Upon arrival to the ED yesterday he also has several liquid bowel movements. He states that in the past he had a similar episode but many years ago that resolved with medical management. Denies fevers, chills, being recently sick, changes in urinary habits. States that he has had a 30 lb weight loss in the past 6 months, mainly because of decreased appetite after a change on his Parkinson's medications. Denies any personal history of cancer, family history remarkable for prostate cancer in his brother. This morning a small bowel follow-through was ordered and after receiving the contrast patient had a liquid bowel movement. There was no documented up from the NG tube that was placed yesterday and upon evaluation at bedside there was only about 50 mL to 100 mL of bilious fluid. Patient states that his abdomen feels way better today not as distended and not as painful. Past Medical/Surgical History Past Medical/Surgical History PMH CVA, COPD, gout, hyperlipidemia, hypertension, Parkinson's disease PSH umbilical hernia repair, right inguinal hernia repair, open appendectomy Family and Social History Family and Social History FMH remarkable for prostate cancer in brother ETOH occasional T Ob/drugs denies Allergies and medications Allergies: Coded Allergies: NO KNOWN ALLERGIES (Unverified , 10/04/18) Home Meds Reported Medications Dutasteride (Avodart) 0.5 Mg Cap, 0.5 MG PO DAILY, CAP 03/14/25 Albuterol Sulfate (Proair Respiclick) 108 Mcg/Act Aer, 108 MCG IN, AER 03/14/25 Fluticasone Propionate (Nasal) (Flonase Allergy Relief) 50 Mcg/Act Spr, 50 MCG NA, SPRAY 03/14/25 Rosuvastatin Calcium (Crestor) 20 Mg Tab, 1 TAB PO DAILY, #30 TAB 5 Refills 03/14/25 Thiamine Mononitrate (B1) 100 Mg Tab, 100 MG PO DAILY, TAB 03/14/25 Cyanocobalamin (B12) 1,000 Mcg Cap, 1000 MCG PO DAILY, CAP 03/14/25 Allopurinol (ZYLOPRIM TABLET) 100 Mg Tb, 1 TAB PO DAILY, #30 TAB 5 Refills 03/14/25 Oxybutynin Chloride (Oxybutynin Chloride) 5 Mg Tab, 10 MG PO DAILY, TAB 03/14/25 Folic Rmsm-Kqmqkvkxdh-Tewjkqgq (Folbic) Tab, 1 TAB PO DAILY, #90 TAB 1 Refill 03/14/25 Pantoprazole Sodium (PANTOPRAZOLE SODIUM) 40 Mg Inj, 40 MG PO DAILY, INJ 03/14/25 Carbidopa-Levodopa (Carbidopa/Levodopa Odt 25-250 mg) 1 Tab Tab, 1 TAB PO TID, TAB 03/14/25 Meloxicam (Meloxicam) 15 Mg Tab, 1 TAB PO DAILY, #30 TAB 2 Refills 03/14/25 Tizanidine Hydrochloride (Zanaflex) 4 Mg Tab, 2 MG PO Q12HR, TAB 03/14/25 Tramadol Hcl (Tramadol Hcl) 50 Mg Tab, 50 MG PO Q8HR, TAB 03/14/25 Fenofibrate (FENOFIBRATE) 145 Mg Tab, 160 MG PO DAILY, TAB 03/14/25 Hydralazine Hcl (Hydralazine Hcl) 50 Mg Tab, 1 TAB PO Q8HPRN, #90 TAB 5 Refills 03/14/25 Lisinopril (Lisinopril) 40 Mg Tab, 1 TAB PO DAILY, #30 TAB 5 Refills 03/14/25 Amlodipine Besylate (NORVASC TABLET) 5 Mg Tb, 2.5 MG PO DAILY, TAB 03/14/25 Discontinued Reported Medications [Proair] No Conflict Check, 2 PUFF IN PRN 07/01/12 Review of systems Review of Systems: HEENT:Normal, CVS:Normal, RESPIRATORY:Normal, GI:Normal, :Abnormal (See HPI), MSK:Normal, NEURO:Normal Examination Vital signs Vital Signs Date Time Temp Pulse Resp B/P (MAP) Pulse Ox O2 Delivery O2 Flow Rate FiO2 03/14/25 09:00 98.4 77 16 105/42 (63) 92 98.4 03/14/25 07:41 Room Air* 0 21 Medications Current Medications Medications (Trade) Dose Ordered Sig/Antonio Route PRN Reason Start Time Stop Time Status Last Admin Pantoprazole Sodium (Protonix) 40 mg DAILY IV 03/14/25 10:00 Ondansetron HCl (Zofran) 4 mg Q4HP PRN IV NAUSEA / VOMITING 03/13/25 22:15 Morphine Sulfate 2 mg Q4HPRN PRN IV SEVERE PAIN (7-10 PAIN SCALE) 03/13/25 22:15 Sodium Chloride 1,000 ml @ 100 mls/hr Q10H IV 03/14/25 10:15 Laboratory Labs Test 03/14/25 12:57 03/14/25 05:26 03/13/25 18:58 03/13/25 18:55 Range/Units White Blood Count 8.2 # 4.4-10.8 10^3/uL Red Blood Count 3.83 L 4.5-5.90 10^6/uL Hemoglobin 11.5 #L 13.5-17.5 g/dL Hematocrit 33.5 #L 41.0-53.0 % Mean Corpuscular Volume 87.4 80.0-100.0 fL Mean Corpuscular Hemoglobin 30.1 28.0-32.0 pg Mean Corpuscular Hemoglobin Concent 34.4 32.0-36.0 g/dL Red Cell Distribution Width 14.1 11.8-14.3 % Platelet Count 339 140-450 10^3/uL Mean Platelet Volume 7.6 6.9-10.8 fL Neutrophils (%) (Auto) 70.7 37.0-80.0 % Lymphocytes (%) (Auto) 13.1 10.0-50.0 % Monocytes (%) (Auto) 12.6 H 0.0-12.0 % Eosinophils (%) (Auto) 3.1 0.0-7.0 % Basophils (%) (Auto) 0.5 0.0-2.0 % Neutrophils # (Auto) 5.8 1.6-8.6 10 ^3/uL Lymphocytes # (Auto) 1.1 0.4-5.4 10 ^3/uL Monocytes # (Auto) 1.0 0-1.3 10 ^3/uL Eosinophils # (Auto) 0.3 0-0.8 10 ^3/uL Basophils # (Auto) 0 0-0.2 10 ^3/uL Nucleated Red Blood Cells 0.0 % Sodium Level 139 136-145 mmol/L Potassium Level 4.6 3.5-5.1 mmol/L Chloride Level 105 98-107 mmol/L Carbon Dioxide Level 24 20-31 mmol/L Anion Gap 10 5-15 Blood Urea Nitrogen 40 H 9-23 mg/dL Creatinine 2.49 H 0.700-1.30 mg/dL Glomerular Filtration Rate Calc 25 >90 mL/min BUN/Creatinine Ratio 16.1 10.0-20.0 Serum Glucose 94 74-106 mg/dL Calcium Level 8.9 8.7-10.4 mg/dL Troponin I High Sensitivity 13 </=54 ng/L Vitamin D 25-Hydroxy 23.2 L 30.0-100 ng/mL Total Bilirubin 0.7 0.2-1.0 mg/dL Aspartate Amino Transferase (AST) 14 13-40 U/L Alanine Aminotransferase (ALT) 17 7-40 U/L Alkaline Phosphatase 73 46-116 U/L Total Protein 7.6 5.7-8.2 g/dL Albumin 5.0 H 3.2-4.8 g/dL Lipase 25 12-53 U/L Lactic Acid Level 1.9 0.4-2.0 mmol/L Examination: GENERAL:Normal, HEENT:Normal (No icterus, no cervical adenopathy), ABDOMEN:Normal (Nondistended, umbilical scar well healed right lower quadrant scar well healed, soft, depressible, mild diffuse tenderness, no rebound, no guarding) Problem List/Assessment/Plan Problems: (1) Small bowel obstruction Assessment and Plan Mr. Maddy Winters is a 84-year-old male who presented yesterday to the emergency department with a partial small bowel obstruction. CT images were seen and there is diffuse dilation of small bowel possible transition point lower pelvis/right lower quadrant but not clearly visible. NG tube was placed yesterday without much output. Despite his presentation he was still having liquid bowel movements. This morning a small bowel follow-through was started on the patient, and at 2 hour alondra, the entire small bowel is full of contrast, although there is no contrast on the large intestine. Small bowel follow- through contrast passes into the large intestine, diet can be advanced to clear liquids. 1. Follow small bowel follow-through, if contrast reaches the large intestine, advance diet to clear liquids and leave NG tube in place 2. Tylenol and/or ibuprofen for pain control, avoid narcotics 3. NG tube clamped 4. Hold bowel regimen Plan discussed with Plan discussed with: Patient, Daughter Visit Coding Surgery Date of Service if different f: Mar 14, 2025 Billing Provider: CHANDLER DELEON MD Surgery Visit Codes: [id number] - INP CONSULT <110 MIN CHANDLER DELEON MD Mar 14, 2025 13:21
[2025-03-14] MEDS ORDERED: ACETAMINOPHEN 325 MG TAB PO PRN (13:30)
[2025-03-15] VITALS (8 sets, daily range): BP systolic 134–170; BP diastolic 61–84; PULSE 79–100; RESP 16–20; TEMP 98–99.4; O2SAT 92–97
[2025-03-15 02:35] LABS: Urine Protein, UAD Negative (Negative)
[2025-03-15 02:41] LABS: Protein, Urine 21.4 mg/dL (1-14)
[2025-03-15 07:42] LABS: Hematocrit 32.7 % (41.0-53.0); Hemoglobin 11.1 g/dL (13.5-17.5); Mean Corpuscular Hemoglobin 29.7 pg (28.0-32.0); Mean Corpuscular Volume 87.3 fL (80.0-100.0); Nucleated Red Blood Cells % 0.1 %
[2025-03-15 07:47] LABS: Potassium 4.4 mmol/L (3.5-5.1)
[2025-03-15 07:48] LABS: Anion Gap 9 (5-15); Carbon Dioxide 25 mmol/L (20-31)
[2025-03-15 07:49] LABS: Calcium 9.1 mg/dL (8.7-10.4)
[2025-03-15 07:53] LABS: Glucose 82 mg/dL (74-106)
[2025-03-15 07:54] LABS: BUN/Creatinine Ratio 27.3 (10.0-20.0)
[2025-03-15 07:55] LABS: Blood Urea Nitrogen 47 mg/dL (9-23); Chloride 111 mmol/L (98-107); INR 1.04 (0.9-1.15); Partial Thromboplastin Time 28.3 SEC (24.5-34.5); Prothrombin Time 11.0 sec (9.3-11.8); Sodium 145 mmol/L (136-145)
[2025-03-15] MEDS ORDERED: SOD CHL 0.45% 1,000 ML IV SCH (09:15)
--- NOTE | 2025-03-15 10:18 | DVHPN2 ---
Progress Note Date Seen: Mar 15, 2025 Medical Necessity Reason Pt with a Central, PICC or Fol: No Subjective Patient reports: No new complaints Review of Systems: HEENT:Normal, CVS:Normal, RESPIRATORY:Normal, GI:Normal, :Normal, MSK:Normal, NEURO:Normal Objective vital signs Vital Sign Date Time Temp Pulse Resp B/P (MAP) Pulse Ox O2 Delivery O2 Flow Rate FiO2 03/15/25 09:15 98.2 100 20 170/84 (112) 95 98.2 03/14/25 20:00 Room Air* 0 21 Total Intake and Output 03/14/25 03/14/25 03/15/25 15:00 23:00 07:00 Intake Total 1000 ml 0 ml Balance 1000 ml 0 ml medications Current Medications Medications Dose Ordered Sig/Antonio Route Start Time Stop Time Status Last Admin Dose Admin Pantoprazole Sodium 40 mg DAILY IV 03/14/25 10:00 Ondansetron HCl 4 mg Q4HP PRN IV 03/13/25 22:15 Acetaminophen 650 mg Q6HR PRN PO 03/14/25 13:30 Sodium Chloride 1,000 ml @ 100 mls/hr Q10H IV 03/15/25 09:15 Examination: GENERAL:Normal, HEENT:Normal, NECK:Normal, LUNGS:Normal, CVS:Normal, ABDOMEN:Normal, MSK:Normal, SKIN:Normal, NEURO:Normal, :Normal laboratory and microbiology Laboratory Tests 03/15/25 06:38 Test 03/15/25 06:38 Range/Units Serum Glucose 82 74-106 mg/dL Microbiology Date/Time Source Procedure Growth Status 03/13/25 18:58 Blood Blood Culture - Preliminary NO GROWTH AFTER 24 HOURS OF INCUBATION. Resulted Problem List/Assessment/Plan Problem List/Assessment/Plan #1 sbo: advance diet, ivf, surg eval #2 htn: adjust meds #3 acute renal failure ?vasomotor nephropathy: ivf #4 hyperlipidemia #5 parkinson's disease #6 gout advance care planning- full code- time spent 18 mins Plan discussed with: Patient My Orders My Orders Orders - YENNI CALDERON MD Procedure Category Date Status Time Kidney US 03/14/25 Resulted 10:14 Chest Portable XY 03/14/25 Resulted 10:14 1/2 Ns PHA 03/15/25 Transmitted 10:15 Carbidopa W Levodopa PHA 03/15/25 Transmitted 25/250mg (Sinemet 2 14:00 Amlodipine Tablet PHA 03/15/25 Transmitted (Norvasc Tablet) 10:15 Amlodipine Tablet PHA 03/16/25 Transmitted (Norvasc Tablet) 10:00 2 Gm Sodium Diet DIET 03/15/25 Transmitted Lunch Allopurinol Tablet PHA 03/16/25 Transmitted (Zyloprim Tablet) 10:00 Hydralazine Hcl PHA 03/15/25 Verified Tablet (Apresoline 22:00 Hydralazine Hcl PHA 03/15/25 Verified Tablet (Apresoline 10:15 Basic Metabolic Panel LAB 03/16/25 Verified 06:00 Date of Service: Mar 15, 2025 Billing Provider: YENNI CALDERON MD Common Visit Codes: [id number] INP/OBS CARE(HIGH) YENNI CALDERON MD Mar 15, 2025 10:18
[2025-03-15] MEDS: SOD CHL 0.45% 1,000 ML IV SCH (11:26)
--- NOTE | 2025-03-15 13:28 | DVHPN2 ---
Progress Note Date Seen: Mar 15, 2025 Medical Necessity Reason Pt with a Central, PICC or Fol: No Subjective Patient reports: No new complaints, Feels better Other Systems: Patient seen and examined by myself today in follow-up Objective vital signs Vital Sign Date Time Temp Pulse Resp B/P (MAP) Pulse Ox O2 Delivery O2 Flow Rate FiO2 03/15/25 11:27 167/70 03/15/25 09:15 98.2 100 20 95 98.2 03/14/25 20:00 Room Air* 0 21 Total Intake and Output 03/14/25 03/14/25 03/15/25 15:00 23:00 07:00 Intake Total 1000 ml 0 ml Balance 1000 ml 0 ml medications Current Medications Medications Dose Ordered Sig/Antonio Route Start Time Stop Time Status Last Admin Dose Admin Pantoprazole Sodium 40 mg DAILY IV 03/14/25 10:00 03/15/25 11:25 40 MG Ondansetron HCl 4 mg Q4HP PRN IV 03/13/25 22:15 Acetaminophen 650 mg Q6HR PRN PO 03/14/25 13:30 Sodium Chloride 1,000 ml @ 75 mls/hr [id number] IV 03/15/25 10:15 03/15/25 11:26 75 MLS/HR Carbidopa/Levodopa 1 tab TID PO 03/15/25 14:00 Amlodipine Besylate 5 mg DAILY PO 03/16/25 10:00 Allopurinol 100 mg DAILY PO 03/16/25 10:00 Hydralazine HCl 25 mg Q12HR PO 03/15/25 22:00 Examination: LUNGS:Normal, CVS:Normal, MSK:Normal laboratory and microbiology Laboratory Tests 03/15/25 06:38 Test 03/15/25 06:38 Range/Units Serum Glucose 82 74-106 mg/dL Microbiology Date/Time Source Procedure Growth Status 03/13/25 18:58 Blood Blood Culture - Preliminary NO GROWTH AFTER 24 HOURS OF INCUBATION. Resulted Problem List/Assessment/Plan Problem List/Assessment/Plan Acute kidney injury superimposed Chronic Kidney Disease secondary hemodynamic mediated Small-bowel obstruction Constipation Hypertension Dehydration Hyponatremia due to dehydration Anemia of chronic of Kidney disease Recommendations Kidney function is improving No urine output charted Strict I&Os kidney ultrasound reported within normal limits Change IVF to 1/2 NS @ 100 cc/hr KCL replacement Surgery consult We will continue to follow Plan discussed with: Patient My Orders My Orders Orders - RYAN JENSEN MD Procedure Category Date Status Time Communication Order ORDERS 03/14/25 Transmitted 17:07 RYAN JENSEN MD Mar 15, 2025 13:28
[2025-03-15] MEDS: CARBIDOPA W LEVODOPA 25/250mg TABLET PO SCH (14:33)
--- NOTE | 2025-03-15 14:52 | DVHPN2 ---
Progress Note - Surgical Date Seen: Mar 15, 2025 Post op day Post op day: 0 Subjective Patient reports: Feels better (Patient feels better today, able to tolerate diet, had 3 bowel movements yesterday and 1 this morning, bowel movements are still liquidy, does not feel bloated or has any abdominal pain) Review of Systems: Deferred Objective Vital signs Vital Sign Date Time Temp Pulse Resp B/P (MAP) Pulse Ox O2 Delivery O2 Flow Rate FiO2 03/15/25 13:00 98.2 85 18 141/69 (93) 97 98.2 03/15/25 08:00 Room Air* 0 21 Total Intake and Output 03/14/25 03/14/25 03/15/25 15:00 23:00 07:00 Intake Total 1000 ml 0 ml Balance 1000 ml 0 ml Medications Current Medications Medications Dose Ordered Sig/Antonio Route Start Time Stop Time Status Last Admin Dose Admin Pantoprazole Sodium 40 mg DAILY IV 03/14/25 10:00 03/15/25 11:25 40 MG Ondansetron HCl 4 mg Q4HP PRN IV 03/13/25 22:15 Acetaminophen 650 mg Q6HR PRN PO 03/14/25 13:30 Sodium Chloride 1,000 ml @ 75 mls/hr [id number] IV 03/15/25 10:15 03/15/25 11:26 75 MLS/HR Carbidopa/Levodopa 1 tab TID PO 03/15/25 14:00 03/15/25 14:33 1 TAB Amlodipine Besylate 5 mg DAILY PO 03/16/25 10:00 Allopurinol 100 mg DAILY PO 03/16/25 10:00 Hydralazine HCl 25 mg Q12HR PO 03/15/25 22:00 Laboratory Laboratory Tests 03/15/25 06:38 Test 03/15/25 06:38 Range/Units Serum Glucose 82 74-106 mg/dL Microbiology Date/Time Source Procedure Growth Status 03/13/25 18:58 Blood Blood Culture - Preliminary NO GROWTH AFTER 24 HOURS OF INCUBATION. Resulted Examination: GENERAL:Normal, ABDOMEN:Normal (Nondistended, infraumbilical scar well healed, right lower quadrant scar well healed, soft, depressible, nontender,) Labs and/or images reviewed: Labs reviewed by me (No leukocytosis, DELANEY resolving) Problem List/Assessment/Plan Problems: (1) Small bowel obstruction Assessment and Plan Mr. Mayo is a 84-year-old male who presented 2 days ago to the hospital with a diagnosis of partial small bowel obstruction. Small-bowel follow-through was carried out yesterday and contrast passed into the large intestine around the 45 minute alondra, this being normal transit time. Given the normal small bowel follow-through partial small bowel obstruction has resolved. Patient was started on diet yesterday and he tolerated overnight. Patient had 3 bowel movements yesterday and 1 bowel movement this morning. He feels good this morning. From a surgical standpoint and from his P SBO issue he is cleared. Patient is still dealing with a resolving DELANEY. 1. No surgical management indicated at this time 2. Continue to advance diet as tolerated 3. We will sign off, please call with any questions or concerns Plan discussed with Plan discussed with: Patient, Daughter Visit Coding Surgery Date of Service if different f: Mar 15, 2025 Billing Provider: CHANDLER DELEON MD Surgery Visit Codes: [id number] INP/OBS CARE(HIGH) CHANDLER DELEON MD Mar 15, 2025 14:52
[2025-03-16 01:00] VITALS: BP 131/76; PULSE 83; RESP 16; TEMP 97.2; O2SAT 96
[2025-03-16 04:32] LABS: Anion Gap 8 (5-15); Carbon Dioxide 25 mmol/L (20-31); Chloride 107 mmol/L (98-107); Potassium 3.6 mmol/L (3.5-5.1); Sodium 140 mmol/L (136-145)
[2025-03-16 04:33] LABS: Calcium 8.9 mg/dL (8.7-10.4)
[2025-03-16 04:38] LABS: BUN/Creatinine Ratio 16.5 (10.0-20.0); Blood Urea Nitrogen 23 mg/dL (9-23); Glucose 101 mg/dL (74-106)
[2025-03-16 05:00] VITALS: BP 146/77; PULSE 83; RESP 16; TEMP 97.9; O2SAT 95
[2025-03-16 08:00] VITALS: PULSE 86; RESP 17; O2SAT 95
[2025-03-16 08:36] VITALS: BP 148/48; PULSE 86; RESP 17; TEMP 98.3; O2SAT 95
[2025-03-16] MEDS: ALLOPURINOL 100 MG TAB PO SCH (09:53)
--- NOTE | 2025-03-16 10:02 | DVHPN2 ---
Progress Note Date Seen: Mar 16, 2025 Medical Necessity Reason Pt with a Central, PICC or Fol: No Subjective Patient reports: No new complaints, Feels better Other Systems: Patient seen and examined by myself today in follow-up Objective vital signs Vital Sign Date Time Temp Pulse Resp B/P (MAP) Pulse Ox O2 Delivery O2 Flow Rate FiO2 03/16/25 09:54 148/48 03/16/25 08:36 98.3 86 17 95 98.3 03/16/25 08:00 Room Air* 0 21 Total Intake and Output 03/15/25 03/15/25 03/16/25 15:00 23:00 07:00 Intake Total 950 ml 980 ml Output Total 1300 ml 1350 ml Balance -350 ml -370 ml medications Current Medications Medications Dose Ordered Sig/Antonio Route Start Time Stop Time Status Last Admin Dose Admin Pantoprazole Sodium 40 mg DAILY IV 03/14/25 10:00 03/16/25 09:54 40 MG Ondansetron HCl 4 mg Q4HP PRN IV 03/13/25 22:15 Acetaminophen 650 mg Q6HR PRN PO 03/14/25 13:30 Sodium Chloride 1,000 ml @ 75 mls/hr [id number] IV 03/15/25 10:15 03/16/25 02:20 75 MLS/HR Carbidopa/Levodopa 1 tab TID PO 03/15/25 14:00 03/16/25 05:57 1 TAB Amlodipine Besylate 5 mg DAILY PO 03/16/25 10:00 03/16/25 09:54 5 MG Allopurinol 100 mg DAILY PO 03/16/25 10:00 03/16/25 09:53 100 MG Hydralazine HCl 25 mg Q12HR PO 03/15/25 22:00 03/16/25 09:54 25 MG Examination: LUNGS:Normal, CVS:Normal, MSK:Normal laboratory and microbiology Laboratory Tests 03/16/25 03:28 03/15/25 06:38 Test 03/16/25 03:28 Range/Units Serum Glucose 101 74-106 mg/dL Microbiology Date/Time Source Procedure Growth Status 03/13/25 18:58 Blood Blood Culture - Preliminary NO GROWTH AFTER 48 HOURS OF INCUBATION. Resulted Problem List/Assessment/Plan Problem List/Assessment/Plan Acute kidney injury superimposed Chronic Kidney Disease secondary hemodynamic mediated Small-bowel obstruction Constipation Hypertension Dehydration Hypernatremia due to dehydration, resolved Anemia of chronic of Kidney disease Recommendations Kidney function is improving Increased urine output Strict I&Os kidney ultrasound reported within normal limits IVF to /2 NS @ 70 cc/hr KCL replacement Surgery consult on board We will continue to follow Plan discussed with: Patient RYAN JENSEN MD Mar 16, 2025 10:02
--- NOTE | 2025-03-16 11:15 | DVHDS2 ---
Discharge Summary Date of Admission Mar 13, 2025 at 22:10 Date of Discharge: Mar 16, 2025 Admitting Diagnosis Small-bowel obstruction Labs/Diagnostic Data: Laboratory Results Test 03/16/25 03:28 03/15/25 06:38 03/14/25 22:00 03/14/25 12:57 Sodium Level 140 mmol/L (136-145) Potassium Level 3.6 mmol/L (3.5-5.1) Chloride Level 107 mmol/L (98-107) Carbon Dioxide Level 25 mmol/L (20-31) Anion Gap 8 (5-15) Blood Urea Nitrogen 23 mg/dL (9-23) Creatinine 1.39 mg/dL (0.700-1.30) Glomerular Filtration Rate Calc 50 mL/min (>90) BUN/Creatinine Ratio 16.5 (10.0-20.0) Serum Glucose 101 mg/dL (74-106) Calcium Level 8.9 mg/dL (8.7-10.4) White Blood Count 6.6 10^3/uL (4.4-10.8) Red Blood Count 3.74 10^6/uL (4.5-5.90) Hemoglobin 11.1 g/dL (13.5-17.5) Hematocrit 32.7 % (41.0-53.0) Mean Corpuscular Volume 87.3 fL (80.0-100.0) Mean Corpuscular Hemoglobin 29.7 pg (28.0-32.0) Mean Corpuscular Hemoglobin Concent 34.0 g/dL (32.0-36.0) Red Cell Distribution Width 13.9 % (11.8-14.3) Platelet Count 331 10^3/uL (140-450) Mean Platelet Volume 7.4 fL (6.9-10.8) Neutrophils (%) (Auto) 64.0 % (37.0-80.0) Lymphocytes (%) (Auto) 18.3 % (10.0-50.0) Monocytes (%) (Auto) 12.7 % (0.0-12.0) Eosinophils (%) (Auto) 4.6 % (0.0-7.0) Basophils (%) (Auto) 0.4 % (0.0-2.0) Neutrophils # (Auto) 4.2 10 ^3/uL (1.6-8.6) Lymphocytes # (Auto) 1.2 10 ^3/uL (0.4-5.4) Monocytes # (Auto) 0.8 10 ^3/uL (0-1.3) Eosinophils # (Auto) 0.3 10 ^3/uL (0-0.8) Basophils # (Auto) 0 10 ^3/uL (0-0.2) Nucleated Red Blood Cells 0.1 % Prothrombin Time 11.0 sec (9.3-11.8) Prothrombin Time INR 1.04 (0.9-1.15) Activated Partial Thromboplast Time 28.3 SEC (24.5-34.5) Urine Color Light-yellow (Yellow) Urine Clarity Clear (Clear) Urine pH 5.5 (5.0-9.0) Urine Specific [place] 1.020 (1.001-1.035) Urine Protein Negative (Negative) Urine Ketones Negative (Negative) Urine Blood Negative /uL (Negative) Urine Nitrite Negative (Negative) Urine Bilirubin Negative (Negative) Urine Urobilinogen Normal mg/dL (Negative) Urine Leukocyte Esterase Negative /uL (Negative) Urine RBC None seen /hpf (0 - 3) Urine Microscopic WBC 1 /HPF (0-3) Urine Squamous Epithelial Cells None seen /hpf (<5) Urine Bacteria None seen /hpf (None Seen) Urine Osmolality 702 mOsm/kg Urine Creatinine 120.95 mg/dL (30.0-125.0) Urine Protein/Creatinine Ratio 0.18 Urine Sodium 111 mmol/L (40-220) Urine Glucose Normal mg/dL (Normal) Urine Total Protein 21.4 mg/dL (1-14) Phosphorus Level 3.6 mg/dL (2.4-5.1) Test 03/14/25 12:53 03/14/25 05:26 03/13/25 18:58 03/13/25 18:55 Parathyroid Hormone (Intact) 44.9 pg/mL (18.4-80.1) Hemoglobin A1c 6.0 % A1C (<5.7) Uric Acid 6.7 mg/dL (3.7-9.2) Troponin I High Sensitivity 13 ng/L (</=54) B-Type Natriuretic Peptide 41.45 pg/mL (0-100) Vitamin D 25-Hydroxy 23.2 ng/mL (30.0-100) Total Bilirubin 0.7 mg/dL (0.2-1.0) Aspartate Amino Transferase (AST) 14 U/L (13-40) Alanine Aminotransferase (ALT) 17 U/L (7-40) Alkaline Phosphatase 73 U/L (46-116) Total Protein 7.6 g/dL (5.7-8.2) Albumin 5.0 g/dL (3.2-4.8) Lipase 25 U/L (12-53) Lactic Acid Level 1.9 mmol/L (0.4-2.0) Other Laboratory Tests 03/16/25 03:28 03/15/25 06:38 Brief Hx & Hospital Course: History of Present Illness 84-year-old male presents for evaluation of abdominal pain. Patient endorses a three day history of decreased appetite with associated nausea vomiting and diffuse abdominal pain. He also reports intermittent constipation. Course of hospitalization: Patient was given small-bowel follow-through which showed contrast reaching the colon in 40 minutes. Patient's abdominal pain has improved. He is tolerating oral intake. Patient had a bowel movement today. Patient has been cleared by General surgery. Patient will be discharged home as instructed to follow up with his primary care provider in 1-2 weeks. Physical examination General: Alert and Oriented x3. No acute distress. Well-nourished. Eyes: EOMI. Anicteric. HENT: Moist mucous membranes. Lungs: Clear to auscultation bilaterally. No accessory muscle use. Cardiovascular: Regular rate and rhythm. No murmur. No JVD. Abdomen: Soft, non-tender and non-distended. No palpable masses. Extremities: No edema. Non-tender. Skin: No rashes or lesions. Warm. Neurologic: No focal neurological deficits. CN II-XII grossly intact, but not individually tested. Psychiatric: Cooperative. Appropriate mood and affect. Total time spent with patient discussing and formulating plan of care: 35 minutes. This medical document was created using an electronic medical record system with [employer] dictation system. Although this document has been carefully reviewed, there may still be some phonetic and typographical errors. These areas are purely typographical due to imperfections of the software programs, and do not reflect any compromise in the patient's medical care. Condition at Discharge: Fair Final Diagnosis/Problems List Small Bowel Obstruction Hypertension AKA, V MN Hyperlipidemia Parkinson's disease Gout Discharge Disposition: Home Discharge Instruct/Medications Diet: Cardiac 2g Na,low cholest Activity: No Restrictions, As Tolerated Follow Up/Referral: FOLLOW UP WITH PCP IN 1-2 WEEKS Medications: CONTINUE ALL PREVIOUS HOME MEDICATIONS Scheduled Allopurinol (Zyloprim Tablet), 1 TAB PO DAILY, (Reported) Amlodipine Besylate (Norvasc Tablet), 2.5 MG PO DAILY, (Reported) Carbidopa-Levodopa (Carbidopa/Levodopa Odt 25-250 mg), 1 TAB PO TID, (Reported) Cyanocobalamin (B12), 1,000 MCG PO DAILY, (Reported) Dutasteride (Avodart), 0.5 MG PO DAILY, (Reported) Fenofibrate (Fenofibrate), 160 MG PO DAILY, (Reported) Folic Gdxt-Pleathlpxk-Jkhigxks (Folbic), 1 TAB PO DAILY, (Reported) Hydralazine Hcl (Hydralazine Hcl), 1 TAB PO Q8HPRN, (Reported) Lisinopril (Lisinopril), 1 TAB PO DAILY, (Reported) Meloxicam (Meloxicam), 1 TAB PO DAILY, (Reported) Oxybutynin Chloride (Oxybutynin Chloride), 10 MG PO DAILY, (Reported) Pantoprazole Sodium (Pantoprazole Sodium), 40 MG PO DAILY, (Reported) Rosuvastatin Calcium (Crestor), 1 TAB PO DAILY, (Reported) Thiamine Mononitrate (B1), 100 MG PO DAILY, (Reported) Tizanidine Hydrochloride (Zanaflex), 2 MG PO Q12HR, (Reported) Tramadol Hcl (Tramadol Hcl), 50 MG PO Q8HR, (Reported) Miscellaneous Medications Albuterol Sulfate (Proair Respiclick), 108 MCG IN, (Reported) Fluticasone Propionate (Nasal) (Flonase Allergy Relief), 50 MCG NA, (Reported) Discontinued Medications [Proair], 2 PUFF IN PRN, (Reported) 36 Discharge Statement: "Patient was advised to return to the ER or call 911 if any headaches, dizziness, shortness of breath, chest pain, abdominal pain, bleeding, fevers, or worsening of medical condition. Patient was counseled about treatment plan, medications, possible side effects, patientverbalized understanding. All questions were answered to the best of my ability. This discharge took greater then 30 minutes in planning, reviewing documentation, counseling the patient, and discussing with other team members." ASSESSMENT ASSESSMENT Assessment Small Bowel Obstruction Date of Service: Mar 16, 2025 Billing Provider: MABEL GARCIA NP Common Visit Codes: 92979-OVF/OBS DISCH DAY >30min MABEL GARCIA NP Mar 16, 2025 11:15
[2025-03-16 12:45] VITALS: BP 149/73; PULSE 89; RESP 17; TEMP 97.7; O2SAT 97
== END 2025-03-16 13:26 | disposition home or self-care (01) | DRG 388 ==
LOC: ER 16:49 → OVERFLOW 22:10 → CENTRAL 03-14 02:56
PROVIDERS: ADMIT Nurse Practitioner Acute Care; ATTEND Nurse Practitioner Acute Care
PROC: 0D9670Z Drainage of Stomach with Drainage Device, Via Natural or Artificial Opening (ICD-10-PCS; principal; 2025-03-13)
DX: K56.600 Partial intestinal obstruction, unspecified as to cause (principal); N17.0 Acute kidney failure with tubular necrosis; E87.1 Hypo-osmolality and hyponatremia; E86.0 Dehydration; H40.89 Other specified glaucoma; J44.89 Other specified chronic obstructive pulmonary disease; M10.9 Gout, unspecified; K59.00 Constipation, unspecified; I12.9 Hypertensive chronic kidney disease with stage 1 through stage 4 chronic kidney disease, or unspecified chronic kidney disease; N18.9 Chronic kidney disease, unspecified; E78.5 Hyperlipidemia, unspecified; G20.A1 Parkinson's disease without dyskinesia, without mention of fluctuations; Z79.82 Long term (current) use of aspirin; Z80.42 Family history of malignant neoplasm of prostate; Z82.49 Family history of ischemic heart disease and other diseases of the circulatory system; Z83.3 Family history of diabetes mellitus; Z86.73 Personal history of transient ischemic attack (TIA), and cerebral infarction without residual deficits
CPT/HCPCS: 36415; 71045; 74176; 74250; 76775; 80048; 80053; 81001; 82306; 82570; 83036; 83605; 83690; 83880; 83935; 83970; 84100; 84156; 84300; 84484; 84550; 85025; 85610; 85730; 87040; 96361; 96374; 96375; G0378; J2405; J2470